=== PATIENT | female | born 1975 | race Caucasian/White ===

== ENCOUNTER → 2019-01-10 | Outpatient (CLI) | payer OTHER ==
--- NOTE | 2019-01-10 16:16 | XR ---
Right leg HISTORY: Trauma and pain 2 views of the right leg on 3 images Varicosities are noted in the subcutaneous tissues. Bone mineralization, joint spaces and alignment a re maintained. Soft tissue calcifications likely due to venous stasis disease. There is a plantar marine caneal spur. Enthesophyte present at the insertion of the Achilles tendon. IMPRESSION: No fracture or dislocation.
== END ==
LOC: RADXRMAIN 15:32
PROVIDERS: ATTEND Emergency Medicine
DX: S86.001A Unspecified injury of right Achilles tendon, initial encounter (principal); S80.11XA Contusion of right lower leg, initial encounter

== ENCOUNTER → 2019-01-13 | Outpatient (CLI) | payer OTHER ==
--- NOTE | 2019-01-13 15:26 | XR ---
EXAMINATION TYPE: XR chest 2V DATE OF EXAM: 01/13/2019 COMPARISON: NONE HISTORY: MRI clearance TECHNIQUE: Frontal and lateral views of the chest are obtained. FINDINGS: Patient is post median sternotomy. There are sternal wire is in place. Overlying artifacts are noted. No other radiopaque foreign bodies. Strand-like densities are present in the mid lungs com patible with underlying scarring or atelectasis. There is no pleural effusion or pneumothorax seen. The cardiac silhouette size is within normal limits. The osseous structures are intact. IMPRESSION: No acute cardiopulmonary process.
== END | disposition home or self-care (01) ==
LOC: RADXRMAIN 11:30
PROVIDERS: ATTEND Orthopaedic Surgery
DX: Z01.818 Encounter for other preprocedural examination (principal); Z98.890 Other specified postprocedural states
CPT/HCPCS: 71046

== ENCOUNTER → 2022-02-23 | Outpatient (CLI) | payer BC ==
--- NOTE | 2022-02-25 12:08 | MM ---
Reason for exam: screening (asymptomatic). Last mammogram was performed 6 years and 4 months ago. History: Patient had first child at age 33. Family history of breast cancer in mother at age 42. Reductions of both breasts, 2013. Physical Findings: A clinical breast exam by your physician is recommended on an annual basis and results should be correlated with mammographic findings. MG 3D Screening Mammo W/Cad Bilateral CC and MLO view(s) were taken. Prior study comparison: October 28, 2015, bilateral MG 3d screening mammo w/cad. February 05, 2010, right breast mammogram dig work up. There are scattered fibroglandular densities. Unchanged areas of bilateral focal asymmetry. 5mm circumscribed isodense nodule lateral right breast is new but likely a benign cyst. 6 month follow up. ASSESSMENT: Probably benign, BI-RAD 3 RECOMMENDATION: Follow-up diagnostic mammogram of the right breast in 6 months. (3D)
== END | disposition home or self-care (01) ==
LOC: RADMAMWWP 15:07
PROVIDERS: ATTEND Obstetrics & Gynecology
DX: Z12.31 Encounter for screening mammogram for malignant neoplasm of breast (principal)
CPT/HCPCS: 77063; 77067

== ENCOUNTER → 2022-08-19 | Outpatient (CLI) | payer BC ==
--- NOTE | 2022-08-19 07:40 | MM ---
Reason for Exam: Additional evaluation requested from prior study. Last screening mammogram was performed 6 month(s) ago. Patient History: Menarche at age 11. First Full-Term at age 33. Late child-bearing (after 30). Postmenopausal. Patient has history of breast feeding. 2012, Bilateral Reduction. Mother had breast cancer, age 42. Risk Values: Kate 5 year model risk: 1.9%. NCI Lifetime model risk: 17.5%. Prior Study Comparison: 02/03/2010 Bilateral Screening Mammogram, [facility]. 02/05/2010 Right Diagnostic Mammogram, [facility]. 10/28/2015 Bilateral Screening Mammogram, [facility]. 02/23/2022 Bilateral Screening Mammogram, [facility]. Tissue Density: Right: The breast tissue is heterogeneously dense. This may lower the sensitivity of mammography. Findings: Analyzed By CAD. Stable appearing upper outer quadrant mass at medial depth measuring 5 mm. No new suspicious osseous, masses or distortions. Overall Assessment: Benign, BI-RAD 2 Management: Screening Mammogram of both breasts in 1 year. A clinical breast exam by your physician is recommended on an annual basis and results should be correlated with mammographic findings. This exam should not preclude additional follow-up of suspicious palpable abnormalities. Results were given to the patient verbally at the time of exam. Electronically signed and approved by: Raymond Wilson DO
== END | disposition home or self-care (01) ==
LOC: RADMAMWWP 06:56
PROVIDERS: ATTEND Obstetrics & Gynecology
DX: R92.8 Other abnormal and inconclusive findings on diagnostic imaging of breast (principal)
CPT/HCPCS: 77061; 77065

== ENCOUNTER 2023-03-13 04:43 | Inpatient (IN) | payer BC ==
[2023-03-13] MEDS ORDERED: DILTIAZEM DRIP BOLUS FROM BAG 1 MG SOLN IV ONE ×2 (05:11→07:32)
--- NOTE | 2023-03-13 05:18 | ED ---
SOB HPI - General Chief Complaint: Shortness of Breath Stated Complaint: ZORAIDA Time Seen by Provider: 03/13/23 04:59 Source: patient Mode of arrival: ambulatory Limitations: no limitations - History of Present Illness Initial Comments: This patient is a 47-year-old woman who presents with complaint of having cough and shortness of breath going back proximally 5-6 days. She states that she started with some congestion then noticed she was having coughing with some occasional whitish sputum. She has shortness of breath. She has not noted fever or chills. She did have some chest pains but she states that there bilateral along the ribs and brought on by cough. She is not having any diaphoresis, nausea or vomiting, palpitations or syncope. The patient had been seen at a clinic earlier in the week, diagnosed with bronchitis, and given course of antibiotics without any improvement. MD Complaint: shortness of breath, cough Onset/Timin -: days(s) Quality: aching Consistency: constant Improves With: nothing Worsens With: nothing - Related Data Previous Rx's Medication Instructions Recorded Apixaban [Eliquis] 5 mg PO BID #60 tab 03/16/23 Furosemide [Lasix] 20 mg PO DAILY #30 tab 03/16/23 Losartan [Cozaar] 25 mg PO HS #30 tab 03/16/23 Metoprolol Succinate (ER) [Toprol 50 mg PO DAILY #30 tab 03/16/23 XL] Spironolactone [Aldactone] 25 mg PO DAILY #30 tab 03/16/23 Allergies Allergy/AdvReac Type Severity Reaction Status Date / Time No Known Allergies Allergy Verified 03/13/23 11:11 Review of Systems ROS Statement: Those systems with pertinent positive or pertinent negative responses have been documented in the HPI. ROS Other: All systems not noted in ROS Statement are negative. Constitutional: Denies: fever, chills Respiratory: Reports: cough, dyspnea. Denies: wheezes Cardiovascular: Reports: palpitations, edema. Denies: chest pain Gastrointestinal: Denies: abdominal pain, nausea, vomiting, diarrhea, melena, hematochezia Genitourinary: Denies: dysuria, hematuria Musculoskeletal: Denies: back pain Skin: Denies: rash Neurological: Denies: headache, weakness Past Medical History Past Medical History: Mitral Valve Prolapse (MVP) History of Any Multi-Drug Resistant Organisms: None Reported Past Surgical History: Breast Surgery Past Psychological History: Anxiety, Depression Smoking Status: Former smoker Past Alcohol Use History: Rare Past Drug Use History: Marijuana - Past Family History Mother Family Medical History: Cancer Father Family Medical History: Prostate Disorder General Exam Limitations: no limitations General appearance: alert, in no apparent distress Head exam: Present: atraumatic, normocephalic Eye exam: Present: normal appearance Neck exam: Present: normal inspection, full ROM Respiratory exam: Present: respiratory distress (Mild tachypnea), rales. Absent: wheezes, rhonchi, stridor, accessory muscle use Cardiovascular Exam: Present: tachycardia, systolic murmur, gallop. Absent: diastolic murmur, rubs GI/Abdominal exam: Present: soft. Absent: distended, tenderness, guarding, rebound, rigid, mass, pulsatile mass, hernia Extremities exam: Present: normal inspection, normal capillary refill, pedal edema. Absent: calf tenderness Back exam: Present: normal inspection. Absent: CVA tenderness (R), CVA tenderness (L) Neurological exam: Present: alert Skin exam: Present: warm, dry, intact, normal color. Absent: rash Course Vital Signs 03/13/23 03/13/23 03/13/23 04:45 05:04 05:05 Temperature 98.1 F Pulse Rate 131 H 138 H Respiratory 22 24 24 Rate Blood Pressure 164/102 143/111 O2 Sat by Pulse 99 96 Oximetry 03/13/23 03/13/23 03/13/23 05:25 05:30 05:35 Temperature Pulse Rate 133 H 120 H 122 H Respiratory 26 H 24 24 Rate Blood Pressure 143/111 158/101 164/102 O2 Sat by Pulse 95 94 L 94 L Oximetry 03/13/23 03/13/23 03/13/23 05:40 05:45 05:50 Temperature Pulse Rate 122 H 116 H 113 H Respiratory 22 Rate Blood Pressure 164/102 164/102 148/107 O2 Sat by Pulse 93 L 93 L 95 Oximetry 03/13/23 03/13/23 03/13/23 05:55 06:00 06:05 Temperature Pulse Rate 112 H 113 H 114 H Respiratory 22 22 21 Rate Blood Pressure 148/107 148/107 156/106 O2 Sat by Pulse 95 95 95 Oximetry 03/13/23 03/13/23 03/13/23 06:10 06:15 06:20 Temperature Pulse Rate 114 H 112 H 116 H Respiratory 13 0 L 20 Rate Blood Pressure 156/106 156/106 160/100 O2 Sat by Pulse 93 L 93 L 94 L Oximetry 03/13/23 03/13/23 03/13/23 06:25 06:40 08:07 Temperature Pulse Rate 115 H 112 H 112 H Respiratory 18 22 20 Rate Blood Pressure 160/100 155/112 162/92 O2 Sat by Pulse 93 L 95 98 Oximetry Medical Decision Making - Medical Decision Making This patient is 47-year-old woman presenting with dyspnea, palpitations, edema. Clinically patient manifesting congestive heart failure. The workup does include chest x-ray which I interpreted as showing cardiomegaly and congestion consistent with congestive heart failure. Given the findings, patient will be admitted to have echocardiogram and cardiology consultation. Was pt. sent in by a medical professional or institution (, PA, [employer], urgent care, hospital, or alf...) When possible be specific @ -[No] Did you speak to anyone other than the patient for history (EMS, parent, family, police, friend...)? What history was obtained from this source @ -[No] Did you review nursing and triage notes (agree or disagree)? Why? @ -[I reviewed and agree with nursing and triage notes] Were old charts reviewed (outside hosp., previous admission, EMS record, old EKG, old radiological studies, urgent care reports/EKG's, alf records)? Report findings @ -[No old charts were reviewed] Differential Diagnosis (chest pain, altered mental status, abdominal pain women, abdominal pain men, vaginal bleeding, weakness, fever, dyspnea, syncope, headache, dizziness, GI bleed, back pain, seizure, CVA, palpatations, mental health, musculoskeletal)? @ -[Differential Dyspnea: Coronary syndrome, arrhythmia, tamponade, asthma, COPD, pulmonary embolism, pneumonia, pneumothorax, pulmonary effusion, anaphylaxis, diabetic ketoacidosis, flailed chest, pulmonary contusion, diaphragmatic rupture, anemia, neuromuscular, this is not meant to be an all-inclusive list. EKG interpreted by me (3pts min.). @ -[As above] X-rays interpreted by me (1pt min.). @ -[As above CT interpreted by me (1pt min.). @ -[None done] U/S interpreted by me (1pt. min.). @ -[None done] What testing was considered but not performed or refused? (CT, X-rays, U/S, labs)? Why? @ -[None] What meds were considered but not given or refused? Why? @ -[None] Did you discuss the management of the patient with other professionals (professionals i.e. , PA, [employer], lab, RT, psych nurse, social services manager, supervisor laundry, teacher, special technical operations officer, case making machine operator)? Give summary @ -[Admitting physician Was smoking cessation discussed for >3mins.? @ -[No] Was critical care preformed (if so, how long)? @ -[Yes 30 minutes Were there social determinants of health that impacted care today? How? (Homelessness, low income, unemployed, alcoholism, drug addiction, transpo rtation, low edu. Level, literacy, decrease access to med. care, detention, rehab)? @ -[No] Was there de-escalation of care discussed even if they declined (Discuss DNR or withdrawal of care, Hospice)? DNR status @ -[No] What co-morbidities impacted this encounter? (DM, HTN, Smoking, COPD, CAD, Cancer, CVA, ARF, Chemo, Hep., AIDS, mental health diagnosis, sleep apnea, morbid obesity)? @ -[None] Was patient admitted / discharged? Hospital course, mention meds given and route, prescriptions, significant lab abnormalities, going to OR and other pertinent info. @ -[The patient is admitted to control the atrial fibrillation with rapid ventricular rate, to improve the congestive heart failure, to rule out developing pneumonia, to have echocardiogram and cardiology consultation Undiagnosed new problem with uncertain prognosis? @ -[No] Drug Therapy requiring intensive monitoring for toxicity (Heparin, Nitro, I nsulin, Cardizem)? @ -[Cardizem Were any procedures done? @ -[No] Diagnosis/symptom? @ -[. Atrial fibrillation with rapid ventricular rate 2. Acute congestive heart failure 3. Acute, or Chronic, or Acute on Chronic? @ -[default] Uncomplicated (without systemic symptoms) or Complicated (systemic symptoms)? @ -[Complicated Side effects of treatment? @ -[No] Exacerbation, Progression, or Severe Exacerbation? @ -[Severe exacerbation of heart failure Poses a threat to life or bodily function? How? (Chest pain, USA, MD, pneumonia, PE, COPD, DKA, ARF, appy, cholecystitis, CVA, Diverticulitis, Homicidal, Suicidal, threat to staff... and all critical care pts) @ -[Yes, untreated atrial fibrillation and congestive heart failure can both progress to hypoxemia and/or MD resulting in - Lab Data Result diagrams: 03/13/23 05:04 03/15/23 10:41 Lab Results 03/13/23 03/13/23 03/13/23 Range/Units 05:02 05:04 05:04 WBC 4.9 (3.8-10.6) k/uL RBC 4.61 (3.80-5.40) m/uL Hgb 12.6 (11.4-16.0) gm/dL Hct 38.7 (34.0-46.0) % MCV 84.0 (80.0-100.0) fL MCH 27.4 (25.0-35.0) pg MCHC 32.6 (31.0-37.0) g/dL RDW 15.7 H (11.5-15.5) % Plt Count 295 (150-450) k/uL MPV 8.1 Neutrophils % 73 % Lymphocytes % 14 % Monocytes % 7 % Eosinophils % 1 % Basophils % 0 % Neutrophils # 3.6 (1.3-7.7) k/uL Lymphocytes # 0.7 L (1.0-4.8) k/uL Monocytes # 0.3 (0-1.0) k/uL Eosinophils # 0.1 (0-0.7) k/uL Basophils # 0.0 (0-0.2) k/uL Hypochromasia Slight PT 10.6 (9.0-12.0) sec INR 1.0 (<1.2) APTT 24.8 (22.0-30.0) sec Sodium (137-145) mmol/L Potassium (3.5-5.1) mmol/L Chloride (98-107) mmol/L Carbon Dioxide (22-30) mmol/L Anion Gap mmol/L BUN (7-17) mg/dL Creatinine (0.52-1.04) mg/dL Est GFR (CKD-EPI)AfAm (>60 ml/min/1.73 sqM) Est GFR (CKD-EPI)NonAf (>60 ml/min/1.73 sqM) Glucose (74-99) mg/dL Plasma Lactic Acid [place] (0.7-2.0) mmol/L Calcium (8.4-10.2) mg/dL Magnesium (1.6-2.3) mg/dL Total Bilirubin (0.2-1.3) mg/dL AST (14-36) U/L ALT (4-34) U/L Alkaline Phosphatase (38-126) U/L Troponin I (0.000-0.034) ng/mL NT-Pro-B Natriuret Pep pg/mL Total Protein (6.3-8.2) g/dL Albumin (3.5-5.0) g/dL Procalcitonin (0.02-0.09) ng/mL Influenza Type A (PCR) Not Detected (Not Detectd) Influenza Type B (PCR) Not Detected (Not Detectd) RSV (PCR) Not Detected (Not Detectd) SARS-CoV-2 (PCR) Not Detected (Not Detectd) 03/13/23 03/13/23 03/13/23 Range/Units 05:04 05:04 05:04 WBC (3.8-10.6) k/uL RBC (3.80-5.40) m/uL Hgb (11.4-16.0) gm/dL Hct (34.0-46.0) % MCV (80.0-100.0) fL MCH (25.0-35.0) pg MCHC (31.0-37.0) g/dL RDW (11.5-15.5) % Plt Count (150-450) k/uL MPV Neutrophils % % Lymphocytes % % Monocytes % % Eosinophils % % Basophils % % Neutrophils # (1.3-7.7) k/uL Lymphocytes # (1.0-4.8) k/uL Monocytes # (0-1.0) k/uL Eosinophils # (0-0.7) k/uL Basophils # (0-0.2) k/uL Hypochromasia PT (9.0-12.0) sec INR (<1.2) APTT (22.0-30.0) sec Sodium 138 (137-145) mmol/L Potassium 3.9 (3.5-5.1) mmol/L Chloride 102 (98-107) mmol/L Carbon Dioxide 25 (22-30) mmol/L Anion Gap 11 mmol/L BUN 10 (7-17) mg/dL Creatinine 0.60 (0.52-1.04) mg/dL Est GFR (CKD-EPI)AfAm >90 (>60 ml/min/1.73 sqM) Est GFR (CKD-EPI)NonAf >90 (>60 ml/min/1.73 sqM) Glucose 113 H (74-99) mg/dL Plasma Lactic Acid Ucba 1.5 (0.7-2.0) mmol/L Calcium 9.1 (8.4-10.2) mg/dL Magnesium 1.8 (1.6-2.3) mg/dL Total Bilirubin 0.6 (0.2-1.3) mg/dL AST 29 (14-36) U/L ALT 25 (4-34) U/L Alkaline Phosphatase 152 H (38-126) U/L Troponin I <0.012 (0.000-0.034) ng/mL NT-Pro-B Natriuret Pep pg/mL Total Protein 7.2 (6.3-8.2) g/dL Albumin 4.1 (3.5-5.0) g/dL Procalcitonin (0.02-0.09) ng/mL Influenza Type A (PCR) (Not Detectd) Influenza Type B (PCR) (Not Detectd) RSV (PCR) (Not Detectd) SARS-CoV-2 (PCR) (Not Detectd) 03/13/23 03/13/23 Range/Units 05:04 05:04 WBC (3.8-10.6) k/uL RBC (3.80-5.40) m/uL Hgb (11.4-16.0) gm/dL Hct (34.0-46.0) % MCV (80.0-100.0) fL MCH (25.0-35.0) pg MCHC (31.0-37.0) g/dL RDW (11.5-15.5) % Plt Count (150-450) k/uL MPV Neutrophils % % Lymphocytes % % Monocytes % % Eosinophils % % Basophils % % Neutrophils # (1.3-7.7) k/uL Lymphocytes # (1.0-4.8) k/uL Monocytes # (0-1.0) k/uL Eosinophils # (0-0.7) k/uL Basophils # (0-0.2) k/uL Hypochromasia PT (9.0-12.0) sec INR (<1.2) APTT (22.0-30.0) sec Sodium (137-145) mmol/L Potassium (3.5-5.1) mmol/L Chloride (98-107) mmol/L Carbon Dioxide (22-30) mmol/L Anion Gap mmol/L BUN (7-17) mg/dL Creatinine (0.52-1.04) mg/dL Est GFR (CKD-EPI)AfAm (>60 ml/min/1.73 sqM) Est GFR (CKD-EPI)NonAf (>60 ml/min/1.73 sqM) Glucose (74-99) mg/dL Plasma Lactic Acid [place] (0.7-2.0) mmol/L Calcium (8.4-10.2) mg/dL Magnesium (1.6-2.3) mg/dL Total Bilirubin (0.2-1.3) mg/dL AST (14-36) U/L ALT (4-34) U/L Alkaline Phosphatase (38-126) U/L Troponin I (0.000-0.034) ng/mL NT-Pro-B Natriuret Pep 1840 pg/mL Total Protein (6.3-8.2) g/dL Albumin (3.5-5.0) g/dL Procalcitonin 0.04 (0.02-0.09) ng/mL Influenza Type A (PCR) (Not Detectd) Influenza Type B (PCR) (Not Detectd) RSV (PCR) (Not Detectd) SARS-CoV-2 (PCR) (Not Detectd) - EKG Data -: EKG Interpreted by Ne EKG shows normal: axis (Normal), intervals (Normal), QRS complexes (Incomplete right bundle branch block) Interpretation: LVH, other (Underlying rhythm appears to be atrial flutter/atrial fibrillation with rate approximately 110 bpm) Critical Care Time Critical Care Time: Yes (30 minutes) Disposition Clinical Impression: Congestive heart failure, Atrial fibrillation with rapid ventricular response Disposition: ADMITTED IP TO THIS HOSP Is patient prescribed a controlled substance at d/c from ED?: No
[2023-03-13 05:21] LABS: Basophils % (A) 0 %; Eosinophils # (A) 0.1 k/uL (0-0.7); Eosinophils % (A) 1 %; HCT 38.7 % (34.0-46.0); HGB 12.6 gm/dL (11.4-16.0); Hypochromasia Slight; Lymphocytes # (A) 0.7 k/uL (1.0-4.8); Lymphocytes % (A) 14 %; MCH 27.4 pg (25.0-35.0); MCHC 32.6 g/dL (31.0-37.0); Mean Platelet Volume 8.1; Monocytes # (A) 0.3 k/uL (0-1.0); Monocytes % (A) 7 %; Neutrophils # (A) 3.6 k/uL (1.3-7.7); Neutrophils % (A) 73 %; Platelet Count 295 k/uL (150-450); RBC 4.61 m/uL (3.80-5.40); RDW 15.7 % (11.5-15.5); WBC 4.9 k/uL (3.8-10.6)
[2023-03-13] MEDS: DILTIAZEM 125 MG in SODIUM CHLORIDE 0.9% 100 ML IV SCH (05:21)
[2023-03-13 05:32] LABS: ALT 25 U/L (4-34); AST 29 U/L (14-36); African American GFR (CKD) >90 (>60 ml/min/1.73 sqM); Albumin 4.1 g/dL (3.5-5.0); Alkaline Phosphatase 152 U/L (38-126); Anion Gap 11 mmol/L; Blood Urea Nitrogen 10 mg/dL (7-17); Calcium 9.1 mg/dL (8.4-10.2); Carbon Dioxide 25 mmol/L (22-30); Chloride 102 mmol/L (98-107); Glucose 113 mg/dL (74-99); Magnesium 1.8 mg/dL (1.6-2.3); Non-African American GFR(CKD) >90 (>60 ml/min/1.73 sqM); Potassium 3.9 mmol/L (3.5-5.1); Sodium 138 mmol/L (137-145); Total Bilirubin 0.6 mg/dL (0.2-1.3); Total Protein 7.2 g/dL (6.3-8.2)
[2023-03-13 05:33] LABS: Partial Thromboplastin Time 24.8 sec (22.0-30.0); Prothrombin Time 10.6 sec (9.0-12.0)
--- NOTE | 2023-03-13 07:12 | XR ---
EXAM: XR Chest, 2 Views CLINICAL HISTORY: ITS.REASON XR Reason: difficulty breathing TECHNIQUE: Frontal and lateral views of the chest. COMPARISON: 01/13/2019 FINDINGS: Lungs: Enlarged cardiac silhouette. Increased perihilar opacities. Pleural space: Unremarkable. No pneumothorax. Heart: Enlarged Bones/joints: No acute osseous abnormality. IMPRESSION: Enlarged cardiac silhouette. Increased perihilar opacities. Findings may represents CHF with pulmonary edema versus pneumonia.
[2023-03-13] MEDS ORDERED: NITROGLYCERIN SL TABS 0.4 MG TAB SUBLINGUAL PRN (07:23)
[2023-03-13] MEDS: ENOXAPARIN 120 MG/0.8 ML SYRINGE SQ SCH ×2 (09:09→19:46)
--- NOTE | 2023-03-13 10:43 | P.HPIM ---
History of Present Illness This is a pleasant 47 years old female with no significant past medical history other than mitral valve prolapse. Patient presents because of dyspnea 1 week duration. She went to a clinic of Dr. Calvo last Wednesday and they diagnosed her with bronchitis and started on antibiotic with no relief She is coughing and making the total white phlegm but no chest pain only when coughing. Just with her diarrhea from the antibiotic no abdominal pain or vomiting. No dysuria urgency or other urinary complaints. No headache weakness or numbness or dizziness. No confusion She quit smoking 15 years ago, alcohol occasionally, marijuana occasionally no other drugs Patient is tachycardic at 112, she is mildly hypoxic 93-95%, afebrile. She has unremarkable labs including CBC, INR, BMP and liver enzymes. Glucose 113. Troponin negative is less than 0.012. ProBNP is elevated 1840. Viruses are not detected including influenza, RSV and coronavirus Chest x-ray cardiac silhouette. Large. Increased perihilar opacity. Findings are consistent with CHF versus pneumonia in the emergency room patient was started on aspirin 325 mg, Cardizem drip. Services antibiotic Rocephin and She was admitted with cardiology consult EKG showing atrial flutter with a rate of 110 and 2-1 block Review of Systems Review of systems CONSTITUTIONAL: No fever, no malaise, no fatigue. HEENT: No recent visual problems or hearing problems. Denied any sore throat. CARDIOVASCULAR: No orthopnea, PND, no palpitations, no syncope. PULMONARY: No chest wall tenderness, no hemoptysis. GASTROINTESTINAL: No diarrhea, no nausea, no vomiting, no abdominal pain. Normoactive bowel sounds. NEUROLOGICAL: No headaches, no weakness, no numbness. HEMATOLOGICAL: Denies any bleeding or petechiae. GENITOURINARY: Denies any burning micturition, frequency, or urgency. MUSCULOSKELETAL/RHEUMATOLOGICAL: Denies any joint pain, swelling, or any muscle pain. ENDOCRINE: Denies any polyuria or polydipsia. Past Medical History Past Medical History: Mitral Valve Prolapse (MVP) History of Any Multi-Drug Resistant Organisms: None Reported Past Surgical History: Breast Surgery Past Psychological History: Anxiety, Depression Smoking Status: Former smoker Past Alcohol Use History: Rare Past Drug Use History: Marijuana - Past Family History Mother Family Medical History: Cancer Father Family Medical History: Prostate Disorder Medications and Allergies Allergies Allergy/AdvReac Type Severity Reaction Status Date / Time No Known Allergies Allergy Verified 03/13/23 04:53 Physical Exam Vitals: Vital Signs Temp Pulse Resp BP Pulse Ox 03/13/23 06:40 112 H 22 155/112 95 03/13/23 06:25 115 H 18 160/100 93 L 03/13/23 06:20 116 H 20 160/100 94 L 03/13/23 06:15 112 H 0 L 156/106 93 L 03/13/23 06:10 114 H 13 156/106 93 L 03/13/23 06:05 114 H 21 156/106 95 03/13/23 06:00 113 H 22 148/107 95 03/13/23 05:55 112 H 22 148/107 95 03/13/23 05:50 113 H 148/107 95 03/13/23 05:45 116 H 22 164/102 93 L 03/13/23 05:40 122 H 164/102 93 L 03/13/23 05:35 122 H 24 164/102 94 L 03/13/23 05:30 120 H 24 158/101 94 L 03/13/23 05:25 133 H 26 H 143/111 95 03/13/23 05:05 24 03/13/23 05:04 138 H 24 143/111 96 03/13/23 04:45 98.1 F 131 H 22 164/102 99 Intake and Output 03/12/23 03/13/23 03/13/23 22:59 06:59 14:59 Other: Weight 109.769 kg GENERAL: The patient is alert and oriented x3, not in any acute distress. Well developed, well nourished. HEENT: Pupils are round and equally reacting to light. EOMI. No scleral icterus. No conjunctival pallor. Normocephalic, atraumatic. No pharyngeal erythema. No thyromegaly. CARDIOVASCULAR: S1 and S2 present. No murmurs, rubs, or gallops. PULMONARY: Chest is clear to auscultation, no wheezing or crackles. ABDOMEN: Soft, nontender, nondistended, normoactive bowel sounds. No palpable organomegaly. MUSCULOSKELETAL: No joint swelling or deformity. -EXTREMITIES: No cyanosis, clubbing, mild bilateral pitting leg edema. NEUROLOGICAL: Gross neurological examination did not reveal any focal deficits. SKIN: No rashes. no petechiae. Results CBC & Chem 7: 03/13/23 05:04 03/13/23 05:04 Labs: Abnormal Lab Results - Last 24 Hours (Table) 03/13/23 03/13/23 Range/Units 05:04 05:04 RDW 15.7 H (11.5-15.5) % Lymphocytes # 0.7 L (1.0-4.8) k/uL Glucose 113 H (74-99) mg/dL Alkaline Phosphatase 152 H (38-126) U/L Assessment and Plan Assessment: Acute CHF, unknown ejection fraction. New-onset Atrial flutter with RVR Obesity with BMI of 35.7 Plan: Continue with Cardizem drip Continue with anticoagulation, currently on Lovenox IV Lasix twice a day Cardiology consult Check echocardiogram Check pro-CALCITONIN check TSH and hemoglobin A1c Labs and medication were reviewed.. Continue same treatment. Continue with symptomatic treatment. Resume home medication. Monitor labs and vitals. DVT and GI prophylaxis. Further recommendations as per clinical course of the patient DVT prophylaxis: Subcutaneous Lovenox GI Prophylaxis: Pepcid PT/OT: Pending Prognosis is guarded
--- NOTE | 2023-03-13 13:02 | CA ---
Transthoracic Echo Report Name: Nicole Elizondo Age: 47 Gender: F : 1975 Exam Date: 03/13/2023 10:14 Exam Location: [facility] Ht (in): 69 Wt (lb): 242 Ordering Physician: Fabio Flor MD Attending/Referring Phys: Crutch Maker Procedure CPT: Indications: chf Cardiac Hx: Patched IAS (at 2 yrs old); Asthmatiphorm Bronchitis;Obesity; Technical Quality: Fair Contrast 1: Total Dose (mL): Contrast 2: Total Dose (mL): MEASUREMENTS (Male / Female) Normal Values 2D ECHO LV Diastolic Diameter PLAX 5.4 cm 4.2 - 5.9 / 3.9 - 5.3 cm LV Systolic Diameter PLAX 4.8 cm LV Fractional Shortening PLAX 12.1 % IVS Diastolic Thickness 1.3 cm 0.6 - 1.0 / 0.6 - 0.9 cm IVS Systolic Thickness 1.3 cm LVPW Diastolic Thickness 1.7 cm 0.6 - 1.0 / 0.6 - 0.9 cm LVPW Systolic Thickness 2.0 cm LV Relative Wall Thickness 0.6 RV Internal Dim ED PLAX 3.6 cm LVOT Diameter 2.2 cm LA Systolic Diameter LX 4.8 cm 3.0 - 4.0 / 2.7 - 3.8 cm LV Diastolic Volume MOD BP 164.4 cm??? 67 - 155 / 56 - 104 cm??? LV Systolic Volume MOD BP 108.5 cm??? 22 - 58 / 19 - 49 cm??? LV Ejection Fraction MOD BP 34.0 % >= 55 % LV Stroke Volume MOD BP 55.9 cm??? LV Diastolic Volume MOD 4C 123.3 cm??? LV Systolic Volume MOD 4C 100.6 cm??? LV Ejection Fraction MOD 4C 18.4 % LV Stroke Volume MOD 4C 22.6 cm??? LV Diastolic Length 4C 9.2 cm LV Systolic Length 4C 8.1 cm LV Diastolic Volume MOD 2C 208.1 cm??? LV Systolic Volume MOD 2C 111.8 cm??? LV Ejection Fraction MOD 2C 46.2 % LV Stroke Volume MOD 2C 96.2 cm??? LV Diastolic Length 2C 9.8 cm LV Systolic Length 2C 8.5 cm M-MODE LV Diastolic Diameter MM 6.2 cm 4.2 - 5.9 / 3.9 - 5.3 cm LV Diastolic Volume MM Teich 195.1 cm??? LV Systolic Diameter MM 5.1 cm LV Systolic Volume MM Teich 124.3 cm??? LV Fractional Shortening MM 17.8 % 25 - 43 / 27 - 45 % LV Ejection Fraction MM Teich 36.3 % LV Stroke Volume MM Teich 70.8 cm??? IVS Diastolic Thickness MM 1.6 cm 0.6 - 1.0 / 0.6 - 0.9 cm IVS Systolic Thickness MM 1.6 cm LVPW Diastolic Thickness MM 0.9 cm 0.6 - 1.0 / 0.6 - 0.9 cm LVPW Systolic Thickness MM 1.6 cm LV Relative Wall Thickness MM 0.4 0.24 - 0.42 / 0.22 - 0.42 LVMW Fractional Shortening MM 9.4 % 14 - 22 / 15 - 23 % LV Mass MM 349.5 g 88 - 224 / 67 - 162 g LV Mass Index MM 151.2 g/m??? 49 - 115 / 43 - 95 g/m??? RV Diastolic Diameter MM 2.8 cm Aortic Root Diameter MM 3.4 cm LA Systolic Diameter MM 5.6 cm LA Ao Ratio MM 1.7 AV Cusp Separation MM 2.1 cm DOPPLER AV Peak Velocity 141.3 cm/s AV Peak Gradient 8.0 mmHg AI Peak Velocity 524.5 cm/s AI Peak Gradient 110.0 mmHg AI Deceleration [place] 349.4 cm/s??? AI Pressure Half Time 435.3 ms MV Peak Velocity 114.7 cm/s MV Peak Gradient 5.3 mmHg MV Mean Velocity 86.1 cm/s MV Mean Gradient 3.2 mmHg MV Velocity Time Integral 14.7 cm MR Peak Velocity 506.5 cm/s MR Peak Gradient 102.6 mmHg MR Mean Velocity 387.9 cm/s MR Mean Gradient 65.6 mmHg MR Velocity Time Integral 146.7 cm MR Flow Rate PISA 69.7 cm???/s MV E' Velocity 4.8 cm/s TR Peak Velocity 263.7 cm/s TR Peak Gradient 27.8 mmHg Right Ventricular Systolic Press 37.8 mmHg PV Peak Velocity 82.3 cm/s PV Peak Gradient 2.7 mmHg FINDINGS Left Ventricle Left ventricular ejection fraction is estimated at 20-25 %. Borderline left ventricular hypertrophy. Grade 3 diastolic dysfunction. Severely reduced global left ventricular systolic function. Right Ventricle Normal right ventricular size and function. Right Atrium Mild right atrial dilatation. Left Atrium Mild left atrial dilatation. Mitral Valve Mild mitral regurgitation. Aortic Valve Trileaflet aortic valve. Moderate aortic regurgitation. Tricuspid Valve [id number] tricuspid regurgitation. Pulmonic Valve [id number] pulmonic regurgitation. Pericardium Normal pericardium. No pericardial effusion. Aorta Normal size aortic root and proximal ascending aorta. CONCLUSIONS Left ventricular ejection fraction 20-25% with global hypokinesis Mild mitral regurgitation Moderate aortic regurgitation Mild to moderate tricuspid regurgitation RVSP 37 Previewed by: Dr. Chai Kolb DO (Electronically Signed) Final Date: 13 March 2023 13:01
--- NOTE | 2023-03-13 15:11 | P.CRDCN ---
History of Present Illness Consult date: 03/13/23 Consult reason: atrial flutter, congestive heart failure Chief complaint: shortness of breath History of present illness: History of present illness: Patient is a pleasant 47-year-old female with significant past medical history of mitral valve prolapse and ASD status post surgery at age 2 who presented with complaints of shortness of breath and cough. She does not follow with a ultrasound manager. She reports that over the past 1 week she has had worsening shortness of breath and cough, she did feel occasional palpitations. 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 In the emergency department she was found to be in a flutter with RVR. Troponin was negative 3. BNP elevated at 1840. WBC 4.9, hemoglobin 12.6, platelets 295, creatinine 0.6, TSH normal. EKG showed atrial flutter with RVR, 110 bpm. Echocardiogram was done showing ejection fraction 2025%, grade 3 diastolic dysfunction, moderate aortic regurgitation, mild to moderate tricuspid regurgitation. Chest x-ray shows enlarged cardiac silhouette with increased perihilar opacities. She is still feeling short of breath today. Denies any chest pain or pressure. She is unable to lay flat. REVIEW OF SYSTEMS: No fever or chills. No cough or expectoration. Reports shortness of breath. No diaphoresis. Patient denies headache, dizziness, blurred vision, double vision. Patient denies any stomach discomfort. No nausea, vomiting. No hematochezia. No hematemesis. Denies any black stools or blood in his stools. Denies dysuria or hematuria. No muscle weakness or numbness. No chest pain or pressure. Reports orthopnea. PHYSICAL EXAMINATION: This is a 47-year-old female in no apparent distress at the time of my examination. HEENT: Head is atraumatic, normocephalic. Pupils are equal, round. Sclerae anicteric. Conjunctivae are clear. Mucous membranes of the mouth are moist. Neck is supple. There is no jugular venous distention. No carotid bruit is heard. CHEST EXAMINATION: Lungs are diminished. No chest wall tenderness is noted on palpation or with deep breathing. HEART EXAMINATION: Irregular rate and rhythm. S1, S2 heard. No murmurs, gallops or rub. ABDOMEN: Soft, nontender. Bowel sounds are heard. EXTREMITIES: 2+ peripheral pulses, 1+ edema BLE NEUROLOGIC EXAMINATION: Patient is awake, alert and oriented x3. IMPRESSION AND PLAN: Atrial flutter Systolic heart failure, EF 2025% Diastolic heart failure Shortness of breath Moderate aortic regurgitation Mild to moderate tricuspid regurgitation PLAN: We will optimize heart failure regimen. Start Toprol 25 mg by mouth erika y, losartan 12.5 mg by mouth daily. Start Lasix 20 mg IV daily. Discussed the option for rhythm management and may consider cardioversion in the next 1-2 days depending on her course. We will follow. I am dictating on behalf of Dr. Chai Kolb's history/physical and assessment/plan. Past Medical History Past Medical History: Mitral Valve Prolapse (MVP) History of Any Multi-Drug Resistant Organisms: None Reported Past Surgical History: Breast Surgery Additional Past Surgical History / Comment(s): surgery on ovaries, ACL repair Past Psychological History: Anxiety, Depression Smoking Status: Former smoker Past Alcohol Use History: Rare Past Drug Use History: Marijuana - Past Family History Mother Family Medical History: Cancer Father Family Medical History: Prostate Disorder Medications and Allergies Home Medications Medication Instructions Recorded Confirmed Type Doxycycline Hyclate 100 mg PO BID 03/13/23 03/13/23 History Allergies Allergy/AdvReac Type Severity Reaction Status Date / Time No Known Allergies Allergy Verified 03/13/23 11:11 Physical Exam Vitals: Vital Signs Temp Pulse Pulse Resp BP BP Pulse Ox 03/13/23 11:20 109 H 17 117/93 95 03/13/23 08:20 97.9 F 129 H 19 157/91 96 03/13/23 08:07 112 H 20 162/92 98 03/13/23 06:40 112 H 22 155/112 95 03/13/23 06:25 115 H 18 160/100 93 L 03/13/23 06:20 116 H 20 160/100 94 L 03/13/23 06:15 112 H 0 L 156/106 93 L 03/13/23 06:10 114 H 13 156/106 93 L 03/13/23 06:05 114 H 21 156/106 95 03/13/23 06:00 113 H 22 148/107 95 03/13/23 05:55 112 H 22 148/107 95 03/13/23 05:50 113 H 148/107 95 03/13/23 05:45 116 H 22 164/102 93 L 03/13/23 05:40 122 H 164/102 93 L 03/13/23 05:35 122 H 24 164/102 94 L 03/13/23 05:30 120 H 24 158/101 94 L 03/13/23 05:25 133 H 26 H 143/111 95 03/13/23 05:05 24 03/13/23 05:04 138 H 24 143/111 96 03/13/23 04:45 98.1 F 131 H 22 164/102 99 Intake and Output 03/13/23 03/13/23 03/13/23 06:59 14:59 22:59 Intake Total 118 Balance 118 Intake: Oral 118 Other: Weight 109.769 kg 109.769 kg Results 03/13/23 05:04 03/13/23 05:04 Cardiac Enzymes 03/13/23 03/13/23 03/13/23 Range/Units 05:04 05:04 08:22 AST 29 (14-36) U/L Troponin I <0.012 0.013 (0.000-0.034) ng/mL 03/13/23 Range/Units 11:08 AST (14-36) U/L Troponin I 0.013 (0.000-0.034) ng/mL Coagulation 03/13/23 Range/Units 05:04 PT 10.6 (9.0-12.0) sec APTT 24.8 (22.0-30.0) sec CBC 03/13/23 Range/Units 05:04 WBC 4.9 (3.8-10.6) k/uL RBC 4.61 (3.80-5.40) m/uL Hgb 12.6 (11.4-16.0) gm/dL Hct 38.7 (34.0-46.0) % Plt Count 295 (150-450) k/uL Comprehensive Metabolic Panel 03/13/23 Range/Units 05:04 Sodium 138 (137-145) mmol/L Potassium 3.9 (3.5-5.1) mmol/L Chloride 102 (98-107) mmol/L Carbon Dioxide 25 (22-30) mmol/L BUN 10 (7-17) mg/dL Creatinine 0.60 (0.52-1.04) mg/dL Glucose 113 H (74-99) mg/dL Calcium 9.1 (8.4-10.2) mg/dL AST 29 (14-36) U/L ALT 25 (4-34) U/L Alkaline Phosphatase 152 H (38-126) U/L Total Protein 7.2 (6.3-8.2) g/dL Albumin 4.1 (3.5-5.0) g/dL Current Medications Generic Name Dose Route Start Last Admin Trade Name Freq PRN Reason Stop Dose Admin Aspirin 325 mg 03/14/23 09:00 Aspirin 325 Mg Tab PO DAILY [facility] Enoxaparin Sodium 110 mg 03/13/23 08:00 03/13/23 09:09 Enoxaparin 120 Mg/0.8 Ml Syringe SQ 110 mg Q12H JAYCE Administration Furosemide 20 mg 03/13/23 14:15 Furosemide 10 Mg/Ml 2 Ml Vial IV DAILY [facility] Diltiazem HCl 125 mg/ Sodium 125 mls @ 5 mls/hr 03/13/23 05:15 03/13/23 05:21 Chloride IV 5 mg/hr .Q24H JAYCE 5 mls/hr Administration 5 MG/HR Losartan Potassium 12.5 mg 03/13/23 14:15 Losartan 25 Mg Tab PO DAILY [facility] Metoprolol Succinate 25 mg 03/13/23 14:15 Metoprolol Succinate (Er) 25 Mg Tab.Er.24h PO DAILY [facility] Nitroglycerin 0.4 mg 03/13/23 07:23 Nitroglycerin Sl Tabs 0.4 Mg Tab SUBLINGUAL Q5M PRN Chest Pain Intake and Output 03/13/23 03/13/23 03/13/23 06:59 14:59 22:59 Intake Total 118 Balance 118 Intake: Oral 118 Other: Weight 109.769 kg 109.769 kg Patient Weight 03/14/23 06:59 Weight 109.769 kg 03/13/23 05:04 03/13/23 05:04
[2023-03-13] MEDS: LOSARTAN 25 MG TAB PO SCH (15:12)
[2023-03-13] MEDS: METOPROLOL SUCCINATE (ER) 25 MG TAB.ER.24H PO SCH (15:12)
[2023-03-13] MEDS: FUROSEMIDE 10 MG/ML 2 ML VIAL IV SCH (15:12)
[2023-03-14] MEDS: DILTIAZEM 125 MG in SODIUM CHLORIDE 0.9% 100 ML IV SCH (03:33)
[2023-03-14] MEDS: FUROSEMIDE 10 MG/ML 2 ML VIAL IV SCH (07:52)
[2023-03-14] MEDS: LOSARTAN 25 MG TAB PO SCH (07:52)
[2023-03-14] MEDS: ENOXAPARIN 120 MG/0.8 ML SYRINGE SQ SCH (07:52)
[2023-03-14] MEDS: METOPROLOL SUCCINATE (ER) 25 MG TAB.ER.24H PO SCH (07:52)
[2023-03-14] MEDS: ASPIRIN 325 MG TAB PO SCH (07:52)
[2023-03-14 13:27] LABS: Chol/HDL Ratio 2.25 Ratio; LDL Cholesterol,Calculated 59.7 mg/dL (0.0-131.0); VLDL Calculation 12.56 mg/dL (5.00-40.00)
--- NOTE | 2023-03-14 13:47 | P.PN ---
Subjective Progress Note Date: 03/14/23 Patient is a pleasant 47-year-old female with significant past medical history of mitral valve prolapse and ASD status post surgery at age 2 who presented with complaints of shortness of breath and cough. She does not follow with a automobiles salesperson. She reports that over the past 1 week she has had worsening shortness of breath and cough, she did feel occasional palpitations. 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 In the emergency department she was found to be in a flutter with RVR. Troponin was negative 3. BNP elevated at 1840. WBC 4.9, hemoglobin 12.6, platelets 295, creatinine 0.6, TSH normal. EKG showed atrial flutter with RVR, 110 bpm. Echocardiogram was done showing ejection fraction 2025%, grade 3 diastolic dysfunction, moderate aortic regurgitation, mild to moderate tricuspid regurgitation. Chest x-ray shows enlarged cardiac silhouette with increased perihilar opacities. She is still feeling short of breath today. Denies any chest pain or pressure. She is unable to lay flat. 03/14 She is feeling much better today. Shortness of breath improved. Tele shows a- flutter with rates 60's. PHYSICAL EXAMINATION: This is a 47-year-old female in no apparent distress at the time of my examination. HEENT: Head is atraumatic, normocephalic. Pupils are equal, round. Sclerae anicteric. Conjunctivae are clear. Mucous membranes of the mouth are moist. Neck is supple. There is no jugular venous distention. No carotid bruit is heard. CHEST EXAMINATION: Lungs are diminished with scattered wheezes. No chest wall tenderness is noted on palpation or with deep breathing. HEART EXAMINATION: Irregular rate and rhythm. S1, S2 heard. No murmurs, gallops or rub. ABDOMEN: Soft, nontender. Bowel sounds are heard. EXTREMITIES: 2+ peripheral pulses, 1+ edema BLE NEUROLOGIC EXAMINATION: Patient is awake, alert and oriented x3. IMPRESSION AND PLAN: Atrial flutter Systolic heart failure, EF 2025% Diastolic heart failure Shortness of breath Moderate aortic regurgitation Mild to moderate tricuspid regurgitation PLAN: She is feeling better today. Optimize heart failure regimen. Continue Toprol 25 mg by mouth daily, losartan 12.5 mg by mouth daily. Lasix 20 mg IV daily. She is still in a-flutter, rate better controlled, DC cardizem drip. We will plan for DANA/Cardioversion tomorrow 03/15. NPO after midnight. Stop lovenox and start Eliquis 5mg po BID, first dose tonight. We will follow. I am dictating on behalf of Dr. Chai Kolb's history/physical and assessment/plan. Objective - Vital Signs Vital signs: Vital Signs Temp 97.9 F 03/14/23 07:50 Pulse 87 03/14/23 07:50 Resp 18 03/14/23 07:50 BP 139/84 03/14/23 07:50 Pulse Ox 94 L 03/14/23 07:50 FiO2 Intake & Output 03/13/23 03/14/23 03/14/23 18:59 06:59 18:59 Intake Total 236 111 180 Output Total 1450 Balance -1214 111 180 Weight 109.769 kg 108.9 kg Intake: Intake, IV Titration 111 Amount Diltiazem 125 mg In 111 Sodium Chloride 0.9% 100 ml @ 5 MG/HR 5 mls/hr IV .Q24H [facility] Rx#:[id number] Oral 236 180 Output: Urine 1450 Other: Voiding Method Toilet Toilet # Voids 1 - Labs CBC & Chem 7: 03/13/23 05:04 03/13/23 05:04
--- NOTE | 2023-03-14 18:31 | P.PN ---
Progress Note - Text Progress Note Date: 03/14/23 Hospital course: This is a pleasant 47 years old female with no significant past medical history other than mitral valve prolapse. Patient presents because of dyspnea 1 week duration. She went to a clinic of Dr. Calvo last Wednesday and they diagnosed her with bronchitis and started on antibiotic with no relief She is coughing and making the total white phlegm but no chest pain only when coughing. Just with her diarrhea from the antibiotic no abdominal pain or vomiting. No dysuria urgency or other urinary complaints. No headache weakness or numbness or dizziness. No confusion She quit smoking 15 years ago, alcohol occasionally, marijuana occasionally no other drugs Patient is tachycardic at 112, she is mildly hypoxic 93-95%, afebrile. She has unremarkable labs including CBC, INR, BMP and liver enzymes. Glucose 113. Troponin negative is less than 0.012. ProBNP is elevated 1840. Viruses are not detected including influenza, RSV and coronavirus Chest x-ray cardiac silhouette. Large. Increased perihilar opacity. Findings are consistent with CHF versus pneumonia in the emergency room patient was started on aspirin 325 mg, Cardizem drip. Services antibiotic Rocephin and She was admitted with cardiology consult EKG showing atrial flutter with a rate of 110 and 2-1 block March 14: I assumed care of the patient today from [facility] hospitalist. Sitting up in bed. Breathing better. Slight clear sputum.. Eating fair. No bowel movement. Given Metamucil. On Cardizem drip 5 mg an hour. Lower extremity edema coming down. Active Medications Apixaban (Apixaban 5 Mg Tab) 5 mg PO BID [facility]; Protocol Aspirin (Aspirin 325 Mg Tab) 325 mg PO DAILY [facility] Last Admin: 03/14/23 07:52 Dose: 325 mg Furosemide (Furosemide 10 Mg/Ml 2 Ml Vial) 20 mg IV DAILY [facility] Last Admin: 03/14/23 07:52 Dose: 20 mg Losartan Potassium (Losartan 25 Mg Tab) 12.5 mg PO DAILY [facility] Last Admin: 03/14/23 07:52 Dose: 12.5 mg Metoprolol Succinate (Metoprolol Succinate (Er) 25 Mg Tab.Er.24h) 25 mg PO DAILY [facility] Last Admin: 03/14/23 07:52 Dose: 25 mg Nitroglycerin (Nitroglycerin Sl Tabs 0.4 Mg Tab) 0.4 mg SUBLINGUAL Q5M PRN PRN Reason: Chest Pain Past Medical History Past Medical History: Mitral Valve Prolapse (MVP) History of Any Multi-Drug Resistant Organisms: None Reported Past Surgical History: Breast Surgery Past Psychological History: Anxiety, Depression Smoking Status: Former smoker Past Alcohol Use History: Rare Past Drug Use History: Marijuana - Past Family History Mother Family Medical History: Cancer Father Family Medical History: Prostate Disorder On examination: VITAL SIGNS: [97.9, 87, 18, 139/84, 94% room air] GENERAL APPEARANCE: Sitting on bed, not in distress HEENT: Normal external appearance of nose and ear. Oral cavity normal EYES: Pupils equal. Conjunctiva normal. NECK: JVD not raised. Mass not palpable. RESPIRATORY: Respiratory effort normal. Lungs few basilar crackles. CARDIOVASCULAR: First and second sounds normal. No edema. ABDOMEN: Soft. Liver and spleen not palpable. No tenderness. No mass palpable. PSYCHIATRY: Alert and oriented x3. Mood and affect normal. INVESTIGATIONS, reviewed in the clinical context: LDL 59 TSH 1.64 procalcitonin 0.04 Troponin I 3 negative ProBNP 1840 2-D echocardiogram: EF 20-25% moderate aortic regurgitation. Right to moderate tricuspid regurgitation. Woxr-qu-hxooealc pulmonic regurgitation. Assessment and plan: -Acute on chronic congestive heart failure exacerbation from systolic dysfunction EF 20-25%. IV Lasix 20 mg daily. Add Aldactone 25 mg daily. Cozaar. -Moderate aortic regurgitation Follow-up with cardiology -Mild to moderate tricuspid and pulmonic regurgitation -Obesity BMI 35.5 Weight loss measures Discussed with patient. Add Aldactone. Activity as tolerated.
[2023-03-14] MEDS: APIXABAN 5 MG TAB PO SCH (20:36)
[2023-03-14] MEDS: SPIRONOLACTONE 25 MG TAB PO SCH (20:41)
[2023-03-15] MEDS: FUROSEMIDE 10 MG/ML 2 ML VIAL IV SCH (09:30)
[2023-03-15 12:00] LABS: African American GFR (CKD) >90 (>60 ml/min/1.73 sqM); Anion Gap 8 mmol/L; Blood Urea Nitrogen 15 mg/dL (7-17); Calcium 9.1 mg/dL (8.4-10.2); Carbon Dioxide 32 mmol/L (22-30); Chloride 99 mmol/L (98-107); Glucose 77 mg/dL (74-99); Non-African American GFR(CKD) >90 (>60 ml/min/1.73 sqM); Potassium 3.9 mmol/L (3.5-5.1); Sodium 139 mmol/L (137-145)
[2023-03-15] MEDS ORDERED: PROPOFOL 10 MG/ML 20 ML VIAL IV ONE (13:10)
[2023-03-15] MEDS ORDERED: LIDOCAINE 2% INJ 20 MG/ML (2 ML VIAL) ONE (13:10)
[2023-03-15] MEDS ORDERED: SODIUM CHLORIDE 0.9% 1,000 ML IV ONE ×2 (13:15)
[2023-03-15] MEDS ORDERED: BENZOCAINE SPRAY 1 CAN TOPICAL ONE (13:15)
[2023-03-15] MEDS ORDERED: ONDANSETRON 4 MG/2 ML VIAL IVP PRN (13:58)
[2023-03-15] MEDS: APIXABAN 5 MG TAB PO SCH ×2 (14:19→20:11)
[2023-03-15] MEDS: LOSARTAN 25 MG TAB PO SCH (14:19)
[2023-03-15] MEDS: SPIRONOLACTONE 25 MG TAB PO SCH (14:19)
[2023-03-15] MEDS: ASPIRIN 325 MG TAB PO SCH (14:20)
[2023-03-15] MEDS: METOPROLOL SUCCINATE (ER) 25 MG TAB.ER.24H PO SCH (14:20)
--- NOTE | 2023-03-15 14:40 | P.PN ---
Subjective Progress Note Date: 03/15/23 HISTORY OF PRESENT ILLNESS: Patient is a pleasant 47-year-old female with significant past medical history of mitral valve prolapse and ASD status post surgery at age 2 who presented with complaints of shortness of breath and cough. She does not follow with a environmental services attendant. She reports that over the past 1 week she has had worsening shortness of breath and cough, she did feel occasional palpitations. 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 In the emergency department she was found to be in a flutter with RVR. Troponin was negative 3. BNP elevated at 1840. WBC 4.9, hemoglobin 12.6, platelets 295, creatinine 0.6, TSH normal. EKG showed atrial flutter with RVR, 110 bpm. Echocardiogram was done showing ejection fraction 2025%, grade 3 diastolic dysfunction, moderate aortic regurgitation, mild to moderate tricuspid regurgitation. Chest x-ray shows enlarged cardiac silhouette with increased perihilar opacities. She is still feeling short of breath today. Denies any chest pain or pressure. She is unable to lay flat. 03/14 She is feeling much better today. Shortness of breath improved. Tele shows a-flutter with rates 60's. 03/15/2023 Patient examined this morning. She is sitting up in the chair. Patient denies chest pain or pressure. She denies shortness of breath. She remains in atrial flutter with controlled ventricular rates. PHYSICAL EXAM: VITAL SIGNS: Reviewed. GENERAL: Well-developed in no acute distress. NECK: Supple. No JVD or thyromegaly LUNGS: Respirations even and unlabored. Lungs essentially clear to auscultation bilaterally. HEART: Regular rate and rhythm. S1 and S2 heard. EXTREMITIES: Normal range of motion. No clubbing or cyanosis. Peripheral pulses intact. No lower extremity edema ASSESSMENT: New-onset typical atrial flutter Acute heart failure with reduced EF, 20-25% Cardiomyopathy, type unknown Shortness of breath Valvular heart disease including moderate aortic regurgitation and mild to moderate tricuspid regurgitation PLAN: Continue current cardiac medications Patient to undergo DANA/CV today with Dr. Kolb Further recommendations pending patient course Nurse practitioner note has been reviewed by physician. Signing provider agrees with the documented findings, assessment, and plan of care. Objective - Vital Signs Vital signs: Vital Signs Temp 98.4 F 03/15/23 14:24 Pulse 75 03/15/23 14:25 Resp 17 03/15/23 14:25 BP 138/78 03/15/23 14:24 Pulse Ox 98 03/15/23 14:24 FiO2 Intake & Output 03/14/23 03/15/23 03/15/23 18:59 06:59 18:59 Intake Total 540 400 Output Total 1250 Balance 540 -850 Weight 105.9 kg Intake: IV 400 Oral 540 Output: Urine 1250 Other: Voiding Method Toilet Toilet Toilet # Voids 2 1 4 - Labs CBC & Chem 7: 03/13/23 05:04 03/15/23 10:41 Labs: Abnormal Lab Results - Last 24 Hours (Table) 03/15/23 Range/Units 10:41 Carbon Dioxide 32 H (22-30) mmol/L
--- NOTE | 2023-03-15 17:09 | P.PN ---
Progress Note - Text Progress Note Date: 03/15/23 Hospital course: This is a pleasant 47 years old female with no significant past medical history other than mitral valve prolapse. Patient presents because of dyspnea 1 week duration. She went to a clinic of Dr. Calvo last Wednesday and they diagnosed her with bronchitis and started on antibiotic with no relief She is coughing and making the total white phlegm but no chest pain only when coughing. Just with her diarrhea from the antibiotic no abdominal pain or vomiting. No dysuria urgency or other urinary complaints. No headache weakness or numbness or dizziness. No confusion She quit smoking 15 years ago, alcohol occasionally, marijuana occasionally no other drugs Patient is tachycardic at 112, she is mildly hypoxic 93-95%, afebrile. She has unremarkable labs including CBC, INR, BMP and liver enzymes. Glucose 113. Troponin negative is less than 0.012. ProBNP is elevated 1840. Viruses are not detected including influenza, RSV and coronavirus Chest x-ray cardiac silhouette. Large. Increased perihilar opacity. Findings are consistent with CHF versus pneumonia in the emergency room patient was started on aspirin 325 mg, Cardizem drip. Services antibiotic Rocephin and She was admitted with cardiology consult EKG showing atrial flutter with a rate of 110 and 2-1 block March 14: I assumed care of the patient today from [facility] hospitalist. Sitting up in bed. Breathing better. Slight clear sputum.. Eating fair. No bowel movement. Given Metamucil. On Cardizem drip 5 mg an hour. Lower extremity edema coming down. March 15: Breathing congested improved. Slight cough. Minimal clear sputum. Patient was waiting to have a DC cardioversion done today including DANA. Remains in atrial flutter with controlled ventricular rate. Active Medications Apixaban (Apixaban 5 Mg Tab) 5 mg PO BID [facility]; Protocol Last Admin: 03/15/23 14:19 Dose: 5 mg Furosemide (Furosemide 10 Mg/Ml 2 Ml Vial) 20 mg IV DAILY [facility] Last Admin: 03/15/23 09:30 Dose: 20 mg Losartan Potassium (Losartan 25 Mg Tab) 12.5 mg PO DAILY [facility] Last Admin: 03/15/23 14:19 Dose: 12.5 mg Metoprolol Succinate (Metoprolol Succinate (Er) 25 Mg Tab.Er.24h) 25 mg PO DAILY [facility] Last Admin: 03/15/23 14:20 Dose: 25 mg Nitroglycerin (Nitroglycerin Sl Tabs 0.4 Mg Tab) 0.4 mg SUBLINGUAL Q5M PRN PRN Reason: Chest Pain Ondansetron HCl (Ondansetron 4 Mg/2 Ml Vial) 4 mg IVP Q6HR PRN PRN Reason: Nausea And Vomiting Spironolactone (Spironolactone 25 Mg Tab) 25 mg PO DAILY [facility] Last Admin: 03/15/23 14:19 Dose: 25 mg Past Medical History Past Medical History: Mitral Valve Prolapse (MVP) History of Any Multi-Drug Resistant Organisms: None Reported Past Surgical History: Breast Surgery Past Psychological History: Anxiety, Depression Smoking Status: Former smoker Past Alcohol Use History: Rare Past Drug Use History: Marijuana - Past Family History Mother Family Medical History: Cancer Father Family Medical History: Prostate Disorder On examination: VITAL SIGNS: [98.4, 75, 17, 138/78, 98% room air] GENERAL APPEARANCE: Sitting on bed, comfortable HEENT: Normal external appearance of nose and ear. Oral cavity normal EYES: Pupils equal. Conjunctiva normal. NECK: JVD prominent. Mass not palpable. RESPIRATORY: Respiratory effort normal. Lungs few basilar crackles. CARDIOVASCULAR: Heart sounds irregular. No edema. ABDOMEN: Soft. Liver and spleen not palpable. No tenderness. No mass palpable. PSYCHIATRY: Alert and oriented x3. Mood and affect normal. INVESTIGATIONS, reviewed in the clinical context: March 15: Potassium 3.9 creatinine 0.71 LDL 59 TSH 1.64 procalcitonin 0.04 Troponin I 3 negative ProBNP 1840 2-D echocardiogram: EF 20-25% moderate aortic regurgitation. Right to moderate tricuspid regurgitation. [id number] pulmonic regurgitation. Assessment and plan: -Acute on chronic congestive heart failure exacerbation from systolic dysfunction EF 20-25%.: Slow to respond IV Lasix 20 mg daily. Aldactone 25 mg daily. Cozaar. -Atrial flutter, controlled ventricular rate Toprol-XL, 25 mg a day. Eliquis. Pending DC cardioversion and DANA -Moderate aortic regurgitation Follow-up with cardiology -Mild to moderate tricuspid and pulmonic regurgitation -Obesity BMI 35.5 Weight loss measures IV Lasix. Aldactone. Toprol-XL. Pending DANA/cardioversion
--- NOTE | 2023-03-15 19:26 | P.TEE ---
Description of Procedure(s): Procedure performed: Transesophageal Echocardiogram with color flow doppler, pulsed wave doppler and continuous wave doppler, synchronized cardioversion Moderate conscious sedation: Moderate conscious sedation was supplied by anesthesia, see separate report. Complications: none Indications: Atrial flutter PROCEDURE: After the risks, benefits and alternatives of the above mentioned procedure was explained in detail with the patient, informed consent was obtained. Patient was brought to the lab in a fasting state. Patient was given IV Versed and Fentanyl for sedation. The throat was sprayed with Hurricane to anesthetize the throat. A lubricated Omni probe was then introduced into the esophagus and stomach and multiple views were obtained. 2D echo with color flow doppler, pulsed wave doppler and continuous wave doppler was utilized. Agitated saline bubbles were injected to assess for any intra-atrial shunt. The probe was then removed. There was no thrombus noted and therefore patient underwent synchronized cardioversion x 1 with 200J with resultant sinus rhythm. Patient tolerated the procedure well. Patient was transferred to the post procedure area in stable and satisfactory condition. FINDINGS: 1. The aortic valve is tricuspid and function normally. 2. The mitral valve appears be normal with mild mitral regurgitation. 3. Tricuspid valve appears to be normal. 4. The interatrial septum is intact. No evidence of PFO. 5. Left atrial appendage is free of clot. 6. Left ventricular EF is 20-25% with global hypokinesis.
[2023-03-16 08:21] VITALS: RESP 17
[2023-03-16] MEDS: FUROSEMIDE 10 MG/ML 2 ML VIAL IV SCH (08:35)
[2023-03-16] MEDS: METOPROLOL SUCCINATE (ER) 25 MG TAB.ER.24H PO SCH (08:36)
[2023-03-16] MEDS: APIXABAN 5 MG TAB PO SCH (08:36)
[2023-03-16] MEDS: SPIRONOLACTONE 25 MG TAB PO SCH (08:36)
[2023-03-16] MEDS: LOSARTAN 25 MG TAB PO SCH (08:36)
[2023-03-16] MEDS ORDERED: LOSARTAN 25 MG TAB PO STA (10:49)
[2023-03-16] MEDS ORDERED: METOPROLOL SUCCINATE (ER) 25 MG TAB.ER.24H PO STA (10:49)
--- NOTE | 2023-03-16 11:57 | P.PN ---
Subjective Progress Note Date: 03/16/23 HISTORY OF PRESENT ILLNESS: Patient is a pleasant 47-year-old female with significant past medical history of mitral valve prolapse and ASD status post surgery at age 2 who presented with complaints of shortness of breath and cough. She does not follow with a client specialist. She reports that over the past 1 week she has had worsening shortness of breath and cough, she did feel occasional palpitations. 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 In the emergency department she was found to be in a flutter with RVR. Troponin was negative 3. BNP elevated at 1840. WBC 4.9, hemoglobin 12.6, platelets 295, creatinine 0.6, TSH normal. EKG showed atrial flutter with RVR, 110 bpm. Echocardiogram was done showing ejection fraction 2025%, grade 3 diastolic dysfunction, moderate aortic regurgitation, mild to moderate tricuspid regurgitation. Chest x-ray shows enlarged cardiac silhouette with increased perihilar opacities. She is still feeling short of breath today. Denies any chest pain or pressure. She is unable to lay flat. 03/14 She is feeling much better today. Shortness of breath improved. Tele shows a-flutter with rates 60's. 03/15/2023 Patient examined this morning. She is sitting up in the chair. Patient denies chest pain or pressure. She denies shortness of breath. She remains in atrial flutter with controlled ventricular rates. 03/16/2023 Patient is status post DANA and cardioversion. She is maintaining sinus mechanism this morning. She denies any chest pain or pressure. Denies shortness of breath. Vital signs are stable. PHYSICAL EXAM: VITAL SIGNS: Reviewed. GENERAL: Well-developed in no acute distress. NECK: Supple. No JVD or thyromegaly LUNGS: Respirations even and unlabored. Lungs essentially clear to auscultation bilaterally. HEART: Regular rate and rhythm. S1 and S2 heard. EXTREMITIES: Normal range of motion. No clubbing or cyanosis. Peripheral pulses intact. No lower extremity edema ASSESSMENT: New-onset typical atrial flutter Acute heart failure with reduced EF, 20-25% Cardiomyopathy, type unknown Shortness of breath Valvular heart disease including moderate aortic regurgitation and mild to moderate tricuspid regurgitation PLAN: Increase metoprolol succinate 50 mg daily Increase losartan to 25 mg daily Discontinue IV Lasix. Begin oral Lasix Continue additional cardiac medications Patient is stable for discharge home today from a cardiac standpoint Nurse practitioner note has been reviewed by physician. Signing provider agrees with the documented findings, assessment, and plan of care. Objective - Vital Signs Vital signs: Vital Signs Temp 98.4 F 03/16/23 07:50 Pulse 84 03/16/23 08:00 Resp 17 03/16/23 08:00 BP 134/86 03/16/23 07:50 Pulse Ox 97 03/16/23 08:38 FiO2 Intake & Output 03/15/23 03/16/23 03/16/23 18:59 06:59 18:59 Intake Total 218 240 180 Output Total 1250 Balance -1032 240 180 Weight 101.5 kg Intake: IV 100 Oral 118 240 180 Output: Urine 1250 Other: Voiding Method Toilet Toilet Toilet # Voids 4 1 - Labs CBC & Chem 7: 03/13/23 05:04 03/15/23 10:41 Labs: Abnormal Lab Results - Last 24 Hours (Table) 03/15/23 Range/Units 10:41 Carbon Dioxide 32 H (22-30) mmol/L
[2023-03-16 16:09] VITALS: BP 139/88; PULSE 72; TEMP 98.7
--- NOTE | 2023-03-16 18:17 | CA ---
Transthoracic Echo Report Name: Nicole Elizondo Age: 47 Gender: F : 1975 Exam Date: 03/16/2023 14:45 Exam Location: [facility] [facility] Ht (in): 69 Wt (lb): 223 Ordering Physician: Zina Tao Attending/Referring Phys: [id number], Dinh General Assignment Reporter Faustina Neri RDCS Procedure CPT: Indications: reassess LV function Cardiac Hx: Technical Quality: Contrast 1: Total Dose (mL): Contrast 2: Total Dose (mL): MEASUREMENTS (Male / Female) Normal Values 2D ECHO LV Diastolic Diameter PLAX 5.9 cm 4.2 - 5.9 / 3.9 - 5.3 cm LV Systolic Diameter PLAX 4.4 cm IVS Diastolic Thickness 1.4 cm 0.6 - 1.0 / 0.6 - 0.9 cm LVPW Diastolic Thickness 1.2 cm 0.6 - 1.0 / 0.6 - 0.9 cm LV Relative Wall Thickness 0.4 FINDINGS Left Ventricle Moderately increased septal wall thickness. Mildly increased posterior wall thickness. Moderately increased left ventricular diastolic diameter. Reduced global left ventricular systolic function. Left ventricular ejection fraction is estimated at 20-25 %. Right Ventricle Right Atrium Left Atrium Mitral Valve Moderate mitral regurgitation. Aortic Valve Moderate aortic regurgitation. Tricuspid Valve Pulmonic Valve Pericardium No pericardial effusion. Aorta CONCLUSIONS Limited echo. Dilated left ventricle with severe global hypokinesis Moderate mitral and aortic regurgitation Previewed by: Dr. Steve Cisneros MD (Electronically Signed) Final Date: 16 Mar 2023 18:17
--- NOTE | 2023-03-16 20:31 | P.DS ---
Providers Date of admission: 03/13/23 07:27 Expected date of discharge: 03/16/23 Attending physician: Emmanuel Castellon Consults: 03/13/23 07:23 Consult Physician Routine Consulting Provider: Mikey Bryant Consult Reason/Comments: New-onset atrial fibrillation Do you want consulting provider notified?: Yes Primary care physician: [facility] Course: Hospital course: This is a pleasant 47 years old female with no significant past medical history other than mitral valve prolapse. Patient presents because of dyspnea 1 week duration. She went to a clinic of Dr. Calvo last Wednesday and they diagnosed her with bronchitis and started on antibiotic with no relief She is coughing and making the total white phlegm but no chest pain only when coughing. Just with her diarrhea from the antibiotic no abdominal pain or vomiting. No dysuria urgency or other urinary complaints. No headache weakness or numbness or dizziness. No confusion She quit smoking 15 years ago, alcohol occasionally, marijuana occasionally no other drugs Patient is tachycardic at 112, she is mildly hypoxic 93-95%, afebrile. She has unremarkable labs including CBC, INR, BMP and liver enzymes. Glucose 113. Troponin negative is less than 0.012. ProBNP is elevated 1840. Viruses are not detected including influenza, RSV and coronavirus Chest x-ray cardiac silhouette. Large. Increased perihilar opacity. Findings are consistent with CHF versus pneumonia in the emergency room patient was started on aspirin 325 mg, Cardizem drip. Services antibiotic Rocephin and She was admitted with cardiology consult EKG showing atrial flutter with a rate of 110 and 2-1 block March 14: I assumed care of the patient today from [facility] hospitalist. Sitting up in bed. Breathing better. Slight clear sputum.. Eating fair. No bowel movement. Given Metamucil. On Cardizem drip 5 mg an hour. Lower extremity edema coming down. March 15: Breathing congested improved. Slight cough. Minimal clear sputum. Patient was waiting to have a DC cardioversion done today including DANA. Remains in atrial flutter with controlled ventricular rate. March 2: Yesterday underwent DANA. No atrial shunt. No thrombus. Underwent successful cardioversion. Remains in sinus rhythm this morning. Breathing much better. Discussed with patient. No need for antibiotics. Follow-up with cartilage E outpatient. Past Medical History Past Medical History: Mitral Valve Prolapse (MVP) History of Any Multi-Drug Resistant Organisms: None Reported Past Surgical History: Breast Surgery Past Psychological History: Anxiety, Depression Smoking Status: Former smoker Past Alcohol Use History: Rare Past Drug Use History: Marijuana - Past Family History Mother Family Medical History: Cancer Father Family Medical History: Prostate Disorder On examination: VITAL SIGNS: [98.4, 65, 17, 126/84, 100% room air] GENERAL APPEARANCE: Sitting on bed, comfortable HEENT: Normal external appearance of nose and ear. Oral cavity normal EYES: Pupils equal. Conjunctiva normal. NECK: JVD prominent. Mass not palpable. RESPIRATORY: Respiratory effort normal. Lungs few basilar crackles. CARDIOVASCULAR: First seconds are normal. No edema. ABDOMEN: Soft. Liver and spleen not palpable. No tenderness. No mass palpable. PSYCHIATRY: Alert and oriented x3. Mood and affect normal. INVESTIGATIONS, reviewed in the clinical context: March 15: Potassium 3.9 creatinine 0.71 LDL 59 TSH 1.64 procalcitonin 0.04 Troponin I 3 negative ProBNP 1840 2-D echocardiogram: EF 20-25% moderate aortic regurgitation. Right to moderate tricuspid regurgitation. [id number] pulmonic regurgitation. Assessment and plan: -Acute on chronic congestive heart failure exacerbation from systolic dysfunction EF 20-25%.: Better I Lasix 20 mg daily. Aldactone 25 mg daily. Cozaar. -Atrial flutter, controlled ventricular rate Toprol-XL, 25 mg a day. Eliquis. Successful DC cardioversion following DAAN. -Moderate aortic regurgitation Follow-up with cardiology -Mild to moderate tricuspid and pulmonic regurgitation -Obesity BMI 35.5 Weight loss measures Disposition: Home Plan - Discharge Summary Discharge Rx Participant: Yes New Discharge Prescriptions: New Losartan [Cozaar] 25 mg PO HS #30 tab Apixaban [Eliquis] 5 mg PO BID #60 tab Furosemide [Lasix] 20 mg PO DAILY #30 tab Spironolactone [Aldactone] 25 mg PO DAILY #30 tab Metoprolol Succinate (ER) [Toprol XL] 50 mg PO DAILY #30 tab Discontinued Doxycycline Hyclate 100 mg PO BID Discharge Medication List Apixaban [Eliquis] 5 mg PO BID #60 tab 03/16/23 [Rx] Furosemide [Lasix] 20 mg PO DAILY #30 tab 03/16/23 [Rx] Losartan [Cozaar] 25 mg PO HS #30 tab 03/16/23 [Rx] Metoprolol Succinate (ER) [Toprol XL] 50 mg PO DAILY #30 tab 03/16/23 [Rx] Spironolactone [Aldactone] 25 mg PO DAILY #30 tab 03/16/23 [Rx] Follow up Appointment(s)/Referral(s): Chai Kolb DO [STAFF PHYSICIAN] - 1 Week (office will call you with appt time) Blake Villeda MD [Primary Care Provider] - 1 Week (office will call you with appt. time) None,Stated [REFERRING] - 1-2 days Patient Instructions/Handouts: Heart Failure (DC), A-fib (Atrial Fibrillation) (DC), Cardioversion (DC) Activity/Diet/Wound Care/Special Instructions: fluid restrict 2000 cc/day heart healthy diet activity limited until you see Dr. Kolb Discharge/Stand Alone Forms: Work/School Release Discharge Disposition: HOME SELF-CARE
[2023-03-17] MEDS ORDERED: FUROSEMIDE 20 MG TAB PO SCH (09:00)
[2023-03-17] MEDS ORDERED: LOSARTAN 25 MG TAB PO SCH (09:00)
[2023-03-17] MEDS ORDERED: METOPROLOL SUCCINATE (ER) 50 MG TAB.ER.24H PO SCH (09:00)
== END 2023-03-16 16:45 | disposition home or self-care (01) | DRG 308 ==
LOC: EC 04:43 → 3SCARD 07:27
PROVIDERS: ADMIT Hospitalist; ATTEND Hospitalist
PROC: 5A2204Z Restoration of Cardiac Rhythm, Single (ICD-10-PCS; 2023-03-15)
PROC: B24BZZ4 Ultrasonography of Heart with Aorta, Transesophageal (ICD-10-PCS; principal; 2023-03-15 10:40)
DX: I48.91 Unspecified atrial fibrillation (principal); I50.41 Acute combined systolic (congestive) and diastolic (congestive) heart failure; K52.1 Toxic gastroenteritis and colitis; Q21.10 Atrial septal defect, unspecified; I42.9 Cardiomyopathy, unspecified; I08.3 Combined rheumatic disorders of mitral, aortic and tricuspid valves; E66.9 Obesity, unspecified; I48.3 Typical atrial flutter; I45.10 Unspecified right bundle-branch block; R00.0 Tachycardia, unspecified; R09.02 Hypoxemia; T36.95XA Adverse effect of unspecified systemic antibiotic, initial encounter; Z20.822 Contact with and (suspected) exposure to COVID-19; Z68.35 Body mass index [BMI] 35.0-35.9, adult; Z87.891 Personal history of nicotine dependence; Z79.899 Other long term (current) drug therapy; Z79.01 Long term (current) use of anticoagulants; Z79.82 Long term (current) use of aspirin; Z28.311 Partially vaccinated for COVID-19
CPT/HCPCS: 36415; 71046; 80048; 80053; 80061; 83036; 83605; 83735; 83880; 84145; 84443; 84484; 85025; 85610; 85730; 87636; 92960; 93005; 93306; 93308; 93312; 93320; 93325; 94760; 96365; 96366; 96375; 99291

== ENCOUNTER → 2023-05-04 | Outpatient (CLI) | payer BC ==
[2023-05-05 05:23] LABS: Blood Urea Nitrogen 21.7 mg/dL (9.0-27.0); Carbon Dioxide 25.2 mmol/L (21.6-31.8); Chloride 100 mmol/L (96-109); Potassium 5.2 mmol/L (3.5-5.5); Sodium 136 mmol/L (135-145)
== END | disposition home or self-care (01) ==
LOC: LABWHC1 09:23
PROVIDERS: ATTEND Internal Medicine Clinical Cardiac Electrophysiology
DX: Z01.812 Encounter for preprocedural laboratory examination (principal); I48.3 Typical atrial flutter
CPT/HCPCS: 80051; 82565; 84520; 85027

== ENCOUNTER 2023-05-20 07:56 | Day surgery (SDC) | payer BC ==
[2023-05-20] MEDS ORDERED: SODIUM CHLORIDE 0.9% 1,000 ML IV ONE (08:02)
[2023-05-20] MEDS ORDERED: ONDANSETRON 4 MG/2 ML VIAL IVP STA (08:45)
[2023-05-20] MEDS ORDERED: KETAMINE 10 MG/ML 20 ML VIAL ONE (09:29)
[2023-05-20] MEDS ORDERED: PROPOFOL 10 MG/ML 20 ML VIAL IV ONE (09:29)
[2023-05-20] MEDS ORDERED: MIDAZOLAM 2 MG/2 ML VIAL ONE (09:29)
[2023-05-20] MEDS ORDERED: fentaNYL (PF) 50 MCG/ML 2 ML AMP ONE (09:29)
[2023-05-20] MEDS ORDERED: LIDOCAINE 1% INJ 10MG/ML (20 ML MDV) ONE (09:50)
[2023-05-20] MEDS ORDERED: LIDOCAINE 1% INJ 10MG/ML (20 ML MDV) SQ ONE (10:05)
[2023-05-20] MEDS ORDERED: HEPARIN SODIUM (1,000 UNIT/ML) 1,000 UNIT in SODIUM CHLORIDE 0.9% 1,000 ML IRRIGATION ONE (11:34)
--- NOTE | 2023-05-20 11:51 | P.HPCAR ---
History of Present Illness This is Dr. Abreu dictating an H/P on this patient The patient was interviewed and examined IMPRESSION / ASSESSMENT: Typical atrial flutter with RVR, symptomatic History of is the patch repair at the age of 2 years Cardiomyopathy with ejection fraction of 20-25% after an upper respiratory infection, global hypokinesis PLAN: Diagnostic study followed by Typical atrial flutter ablation Reassessment of LV function on intracardiac echo HPI In the month of February the patient presented with shortness of breath and bronchitis. She was found to be in typical atrial flutter with RVR 2-D echo revealed severe global cardio myopathy Since she is asymptomatic at that time she underwent an electrical cardioversion She presents for typical atrial flutter ablation She has a past history of ASD patch repair of the age of 2 years Her TSH was normal Inter-atrial conduction delay noted on EKG ROS: No fever chills or rigors, no cough, phlegm or expectoration, no nausea, vomiting or diarrhea, no hematuria, dysuria, no musculoskeletal complaints, no strokes or seizures, no skin lesions. EXAMINATION: On examination blood pressure 128/67 mmHg pulse rate in the 70s, afebrile Breath sounds are reduced bilaterally but there are no rhonchi Normal heart sounds no murmurs Abdomen soft No JVD REVIEW OF LABS, ECG & MEDICAL DATA Current medications include losartan, spironolactone, metoprolol succinate, Lasix and ELIQUIS Beta-hCG negative Physical Exam Vitals: Vital Signs Temp Pulse Resp BP Pulse Ox 05/20/23 08:20 97.7 F 71 16 128/67 100 Intake and Output 05/19/23 05/20/23 05/20/23 22:59 06:59 14:59 Intake Total 1363 Balance 1363 Intake: IV 1363 Other: Weight 105.6 kg Past Medical History Past Medical History: Heart Failure, Hypertension, Mitral Valve Prolapse (MVP) Additional Past Medical History / Comment(s): see Dr Abreu H&P, 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 sees DR Kolb, recently admitted 03/13/23 for heart issues per pt. History of Any Multi-Drug Resistant Organisms: None Reported Past Surgical History: Breast Surgery Additional Past Surgical History / Comment(s): surgery on ovaries, ACL repair, open heart surgery at 2 yrs old for valve, dermoid cyst Past Anesthesia/Blood Transfusion Reactions: Postoperative Nausea & Vomiting (PONV) Additional Past Anesthesia/Blood Transfusion Reaction / Comment(s): felt hot after breast surgery at [facility] , temporary Smoking Status: Former smoker - Past Family History Mother Family Medical History: Cancer Additional Family Medical History / Comment(s): breast cancer Father Family Medical History: Prostate Disorder Physical Examination Vital Signs Temp Pulse Resp BP Pulse Ox 05/20/23 08:20 97.7 F 71 16 128/67 100 Intake and Output 05/19/23 05/20/23 05/20/23 22:59 06:59 14:59 Intake Total 1363 Balance 1363 Intake: IV 1363 Other: Weight 105.6 kg Results Current Medications Generic Name Dose Route Start Last Admin Trade Name Freq PRN Reason Stop Dose Admin Sodium Chloride 1,000 mls @ 20 mls/hr 05/20/23 05:59 Saline 0.9% IV 06/19/23 06:00 .Q24H JAYCE Lactated Ringer's 1,000 mls @ 20 mls/hr 05/20/23 05:59 Lactated Ringers IV 06/19/23 06:00 .Q24H JAYCE Intake and Output 05/19/23 05/20/23 05/20/23 22:59 06:59 14:59 Intake Total 1363 Balance 1363 Intake: IV 1363 Other: Weight 105.6 kg Patient Weight 05/21/23 06:59 Weight 105.6 kg
[2023-05-20] MEDS ORDERED: ACETAMINOPHEN IV (For NPO) 1,000 MG in EMPTY BAG 1 BAG IVPB ONE (12:22)
[2023-05-20] MEDS ORDERED: ACETAMINOPHEN TAB 325 MG TAB PO PRN (12:22)
--- NOTE | 2023-05-20 12:46 | P.EPPROC ---
- EP Procedure Note Electrophysiology Procedure Note: Diagnosis Typical atrial flutter with RVR Associated cardio myopathy History of EST patch repair at 2 years of age Inter-atrial conduction delay Details Patient was brought to the EP lab in a fasting state. Written informed consent was obtained prior to the procedure. The procedure was performed under conscious sedation Per paper goods machine set up operator, patient may have a history of malignant hyperthermia following general anesthesia and therefore we avoid a general anesthesia Venous sheaths were placed in the right left femoral veins and diagnostic catheter placed in high right atrium His bundle area right ventricle coronary sinus and chemo tricuspid isthmus Patient was in sinus rhythm the start of the study During mapping of the chemo tricuspid isthmus she went into typical atrial flutter which terminated during ablation Intracardiac echo revealed normalization of LV function Thickened pericardium consistent with prior pericarditis 3-D anatomical mapping of the chemo tricuspid isthmus. Eustachian ridge and tricuspid valve were tagged. His bundle was tagged 3-D mapping of the acute tricuspid isthmus was performed. RF ablation was performed Good contact force, power used up to 40 W A complete RF line block was made without any anatomic gaps differential pacing across the RF line in the cavo tricuspid isthmus revealed bidirectional block A full EP study is performed Sinus cycle length 1125 ms, AL interval 193 ms, QRS 180 ms and QT 490 ms Tachycardia cycle length 280 ms for atrial flutter AH 25 and HV 37 ms Split P waves consistent with inter-atrial conduction delay Sinus node recovery times at 600, 500 and, 400 ms were 1541, 1548 and 997 ms Prolonged corrected sinus node recovery times as well as evidence of sinus node entrance block AV node Wenckebach block from the Maurizio sinus 430 ms No delta waves VA Wenckebach block, TRAN block 460 ms Atrial extra stimulation performed AV node ERP 600\390 ms Atrial ERP 600/190 ms High-dose Isuprel used AV node Wenckebach block improved to 290 ms Burst stimulation from the high right atrium and atrial extra stimulation performed No SVT induced Charmaine response to Parahisian pacing All sheaths removed at the end of the procedure No pericardial effusion Vascade closure device applied Patient tolerated the procedure well without any acute complications
[2023-05-20] MEDS: LACTATED RINGERS 1,000 ML IV SCH (15:35)
[2023-05-20] MEDS: SODIUM CHLORIDE 0.9% 1,000 ML IV SCH (15:35)
[2023-05-20] MEDS: APIXABAN 5 MG TAB PO SCH (20:55)
[2023-05-20] MEDS ORDERED: LOSARTAN 25 MG TAB PO SCH (21:00)
[2023-05-21 04:04] VITALS: BP 116/67; RESP 16
[2023-05-21] MEDS: LACTATED RINGERS 1,000 ML IV SCH (05:01)
[2023-05-21] MEDS: SODIUM CHLORIDE 0.9% 1,000 ML IV SCH (05:01)
[2023-05-21 06:02] LABS: Anisocytosis Slight; Basophils % (A) 0 %; Eosinophils # (A) 0.1 k/uL (0-0.7); Eosinophils % (A) 2 %; HCT 35.4 % (34.0-46.0); HGB 11.7 gm/dL (11.4-16.0); Lymphocytes # (A) 1.6 k/uL (1.0-4.8); Lymphocytes % (A) 35 %; MCH 28.5 pg (25.0-35.0); MCHC 33.1 g/dL (31.0-37.0); MCV 85.8 fL (80.0-100.0); Mean Platelet Volume 7.7; Monocytes # (A) 0.3 k/uL (0-1.0); Monocytes % (A) 7 %; Neutrophils # (A) 2.6 k/uL (1.3-7.7); Neutrophils % (A) 55 %; Platelet Count 208 k/uL (150-450); RBC 4.12 m/uL (3.80-5.40); RDW 16.9 % (11.5-15.5); WBC 4.7 k/uL (3.8-10.6)
[2023-05-21 08:26] VITALS: PULSE 56; TEMP 98.2
[2023-05-21] MEDS ORDERED: METOPROLOL SUCCINATE (ER) 50 MG TAB.ER.24H PO SCH (09:00)
[2023-05-21] MEDS ORDERED: FUROSEMIDE 20 MG TAB PO SCH (09:00)
[2023-05-21] MEDS ORDERED: SPIRONOLACTONE 25 MG TAB PO SCH (09:00)
[2023-05-21] MEDS: APIXABAN 5 MG TAB PO SCH (09:59)
--- NOTE | 2023-05-21 10:35 | P.DS ---
Providers Attending physician: Patrick Abreu Primary care physician: [facility] Course: Patient is doing well. Groins of healed well Rhythm is normal No chest discomfort no dizziness no lightheadedness On examination her blood pressure is normal Heart sounds are normal No murmurs no gallops no rub No swelling the groins Impression Typical atrial flutter Status post successful atrial flutter ablation AST patch repair at the age of 2 years History of viral cardio myopathy Plan Continue ELIQUIS Continue current cardiac medications including adenopathy artery medications Follow-up with Dr. Kolb Follow-up 2-D echo to reassess LV function Plan - Discharge Summary Discharge Rx Participant: No New Discharge Prescriptions: Continue Losartan [Cozaar] 25 mg PO HS #30 tab Apixaban [Eliquis] 5 mg PO BID #60 tab Furosemide [Lasix] 20 mg PO DAILY #30 tab Acetaminophen [Tylenol Arthritis] 1,300 mg PO BID Melatonin 20 mg PO HS Spironolactone [Aldactone] 25 mg PO DAILY #30 tab Metoprolol Succinate (ER) [Toprol XL] 50 mg PO DAILY #30 tab Multivit-Min/Iron Fum/Folic AC [One-A-Day Women's Complete Tab] 1 each PO DAILY Discharge Medication List Apixaban [Eliquis] 5 mg PO BID #60 tab 03/16/23 [Rx] Furosemide [Lasix] 20 mg PO DAILY #30 tab 03/16/23 [Rx] Losartan [Cozaar] 25 mg PO HS #30 tab 03/16/23 [Rx] Metoprolol Succinate (ER) [Toprol XL] 50 mg PO DAILY #30 tab 03/16/23 [Rx] Spironolactone [Aldactone] 25 mg PO DAILY #30 tab 03/16/23 [Rx] Acetaminophen [Tylenol Arthritis] 1,300 mg PO BID 05/13/23 [History] Melatonin 20 mg PO HS 05/13/23 [History] Multivit-Min/Iron Fum/Folic AC [One-A-Day Women's Complete Tab] 1 each PO DAILY 05/13/23 [History] Follow up Appointment(s)/Referral(s): Chai Kolb DO [STAFF PHYSICIAN] - 05/27/23 12:30 pm
== END 2023-05-21 11:45 | disposition home or self-care (01) ==
LOC: CATHEP 07:56 → 6NMEDSUR 11:34 → CATHEP 05-21 11:45
PROVIDERS: ATTEND Internal Medicine Clinical Cardiac Electrophysiology
DX: I48.3 Typical atrial flutter (principal); I42.9 Cardiomyopathy, unspecified; I11.0 Hypertensive heart disease with heart failure; I34.1 Nonrheumatic mitral (valve) prolapse; Z87.74 Personal history of (corrected) congenital malformations of heart and circulatory system; Z98.890 Other specified postprocedural states; Z87.81 Personal history of (healed) traumatic fracture; Z80.3 Family history of malignant neoplasm of breast; Z79.899 Other long term (current) drug therapy
CPT/HCPCS: 93623; 93662; 93653; 86900; 86901; 85025; 86850; 81025; C1759; C1894; C1769; C1760; C1730; C1893; C1732; J2250; J2405; J2001; J3010; J1644; J2704

== ENCOUNTER → 2023-10-11 | Outpatient (CLI) | payer BC ==
--- NOTE | 2023-10-12 12:22 | MM ---
Reason for Exam: Screening (asymptomatic). Last mammogram was performed 1 year(s) and 7 month(s) ago. Patient History: Menarche at age 11. First Full-Term at age 33. Late child-bearing (after 30). Postmenopausal. Patient has history of breast feeding. 2012, Bilateral Reduction. Mother had breast cancer, age 42. Risk Values: Kate 5 year model risk: 2.0%. NCI Lifetime model risk: 17.3%. Prior Study Comparison: 10/28/2015 Bilateral Screening Mammogram, [facility]. 02/23/2022 Bilateral Screening Mammogram, [facility]. 08/19/2022 Right MG 3D diag mammo w/cad RT, [facility]. Tissue Density: There are scattered fibroglandular densities. Findings: Analyzed By CAD. There is no suspicious group of microcalcifications or new suspicious mass in either breast. Overall Assessment: Negative, BI-RAD 1 Management: Screening Mammogram of both breasts in 1 year. . Patient should continue monthly self-breast exams. A clinical breast exam by your physician is recommended on an annual basis. This exam should not preclude additional follow-up of suspicious palpable abnormalities. Note on Kate scores and lifetime risk: 1. A Kate score greater than 3% is considered moderate risk. If this is the case, consider specialist referral to assess eligibility for a risk reducing agent. 2. If overall lifetime risk for the development of breast cancer is 20% or higher, the patient may qualify for future screening with alternating mammogram and breast MRI. Electronically signed and approved by: Homer Ramirez M.D. Radiologis
== END | disposition home or self-care (01) ==
LOC: RADMAMWWP 08:34
PROVIDERS: ATTEND Obstetrics & Gynecology
DX: Z12.31 Encounter for screening mammogram for malignant neoplasm of breast (principal); Z78.0 Asymptomatic menopausal state; Z80.3 Family history of malignant neoplasm of breast
CPT/HCPCS: 77063; 77067

== ENCOUNTER 2025-01-24 08:28 | Emergency (ER) | payer BC, OTHER ==
--- NOTE | 2025-01-24 08:57 | ED ---
General Adult HPI - General Chief complaint: Abdominal Pain Stated complaint: L side pain Time Seen by Provider: 01/24/25 08:40 Source: patient, RN notes reviewed, old records reviewed Mode of arrival: ambulatory Limitations: no limitations - History of Present Illness Initial comments: This is a 49-year-old female who presents to the emergency department complaining that she woke up this morning started having sudden left-sided flank pain that radiated to the middle of her abdomen and into her back. Patient denies any fever chills. Patient states the pain was severe and she started vomiting. Patient denies any diarrhea. Patient states she does have a history of kidney stones but they are normally on the right side. Patient denies chest pain or difficulty breathing. Patient denies any dysuria hematuria urinary frequency. - Related Data Home Medications Medication Instructions Recorded Confirmed Acetaminophen [Tylenol Arthritis] 1,300 mg PO BID 05/13/23 05/20/23 Melatonin 20 mg PO HS 05/13/23 05/20/23 Multivit-Min/Iron Fum/Folic AC 1 each PO DAILY 05/13/23 05/13/23 [One-A-Day Women's Complete Tab] Previous Rx's Medication Instructions Recorded Apixaban [Eliquis] 5 mg PO BID #60 tab 03/16/23 Furosemide [Lasix] 20 mg PO DAILY #30 tab 03/16/23 Losartan [Cozaar] 25 mg PO HS #30 tab 03/16/23 Metoprolol Succinate (ER) [Toprol 50 mg PO DAILY #30 tab 03/16/23 XL] Spironolactone [Aldactone] 25 mg PO DAILY #30 tab 03/16/23 Ketorolac [Toradol] 10 mg PO Q8HR #15 tab 01/24/25 Tamsulosin [Flomax] 0.4 mg PO DAILY #10 cap 01/24/25 Allergies Allergy/AdvReac Type Severity Reaction Status Date / Time morphine AdvReac very Verified 01/24/25 08:41 sensitive to it Review of Systems ROS Statement: Those systems with pertinent positive or pertinent negative responses have been documented in the HPI. ROS Other: All systems not noted in ROS Statement are negative. 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 sees DR Kolb, recently admitted 03/13/23 for heart issues per pt. History of Any Multi-Drug Resistant Organisms: None Reported Past Surgical History: Breast Surgery Additional Past Surgical History / Comment(s): surgery on ovaries, ACL repair, open heart surgery at 2 yrs old for valve, dermoid cyst Past Anesthesia/Blood Transfusion Reactions: Postoperative Nausea & Vomiting (PONV) Additional Past Anesthesia/Blood Transfusion Reaction / Comment(s): felt hot after breast surgery at [facility] , temporary Past Psychological History: Anxiety, Depression Smoking Status: Former smoker Past Alcohol Use History: Rare Past Drug Use History: Marijuana - Past Family History Mother Family Medical History: Cancer Additional Family Medical History / Comment(s): breast cancer Father Family Medical History: Prostate Disorder General Exam - General Exam Comments Initial Comments: GENERAL: Patient is well-developed and well-nourished. Patient is nontoxic and well- hydrated and is in mild distress. ENT: Neck is soft and supple. No significant lymphadenopathy is noted. Oropharynx is clear. Moist mucous membranes. Neck has full range of motion without eliciting any pain. EYES: The sclera were anicteric and conjunctiva were pink and moist. Extraocular movements were intact and pupils were equal round and reactive to light. Eyelids were unremarkable. PULMONARY: Unlabored respirations. Good breath sounds bilaterally. No audible rales rhonchi or wheezing was noted. CARDIOVASCULAR: There is a regular rate and rhythm without any murmurs gallops or rubs. ABDOMEN: Mild left mid abdominal pain no rebound SKIN: Skin is clear with no lesions or rashes and otherwise unremarkable. NEUROLOGIC: Patient is alert and oriented x3. Cranial nerves II through XII are grossly i ntact. Motor and sensory are also intact. Normal speech, volume and content. Symmetrical smile. MUSCULOSKELETAL: Normal extremities with adequate strength and full range of motion. LYMPHATICS: No significant lymphadenopathy is noted PSYCHIATRIC: Normal psychiatric evaluation. Limitations: no limitations Course Vital Signs 01/24/25 08:39 Pulse Rate 85 Respiratory 18 Rate Blood Pressure 126/74 O2 Sat by Pulse 99 Oximetry Medical Decision Making - Medical Decision Making EKG is interpreted by myself EKG shows atrial fibrillation at 77 bpm QRS is 95 QT interval is 378 QTc is 409. Patient's EKG shows no ST segment elevation or depression. Was pt. sent in by a medical professional or institution (TODD Montanez, MATERIALS HANDLING COORDINATOR, urgent care, hospital, or snf...) When possible be specific @ -No Did you speak to anyone other than the patient for history (EMS, parent, family, police, friend...)? What history was obtained from this source @ -No Did you review nursing and triage notes (agree or disagree)? Why? @ -I reviewed and agree with nursing and triage notes Were old charts reviewed (outside hosp., previous admission, EMS record, old EKG, old radiological studies, urgent care reports/EKG's, snf records)? Report findings @ -No old charts were reviewed Differential Diagnosis? @ -Differential Abdominal Pain Women: Appendicitis, Cholecystitis, diverticulosis, ischemic bowel, pancreatitis, hepatitis, UTI, gastroenteritis, AAA, incarcerated hernia, bowel obstruction, constipation, inflammatory bowel, hepatitis, peptic ulcer disease, splenic infarction, perforated viscus, vulvitis, ovarian torsion, PID, kidney stone, placenta abruption, this is not meant to be an all-inclusive list EKG interpreted by me (3pts min.). @ -As above X-rays interpreted by me (1pt min.). @ -None done CT interpreted by me (1pt min.). @ -CAT scan shows a 45 mm stone on the left side causing hydronephrosis U/S interpreted by me (1pt. min.). @ -None done What testing was considered but not performed or refused? (CT, X-rays, U/S, labs)? Why? @ -None What meds were considered but not given or refused? Why? @ -None Did you discuss the management of the patient with other professionals (professionals i.e. TODD Montanez, MATERIALS HANDLING COORDINATOR, lab, RT, psych nurse, social research assistant, certification officer, teacher, community liaison officer, rn case management)? Give summary @ -No Was smoking cessation discussed for >3mins.? @ -No Was critical care preformed (if so, how long)? @ -No Were there social determinants of health that impacted care today? How? (Homelessness, low income, unemployed, alcoholism, drug addiction, transportation, low edu. Level, literacy, decrease access to med. care, skilled nursing, rehab)? @ -No Was there de-escalation of care discussed even if they declined (Discuss DNR or withdrawal of care, Hospice)? DNR status @ -No What co-morbidities impacted this encounter? (DM, HTN, Smoking, COPD, CAD, Cancer, CVA, ARF, Chemo, Hep., AIDS, mental health diagnosis, sleep apnea, morbid obesity)? @ -None Was patient admitted / discharged? Hospital course, mention meds given and route, prescriptions, significant lab abnormalities, going to OR and other pertinent info. @ -Patient received Toradol and Zofran in the emergency department was fluid and feels considerably better. Undiagnosed new problem with uncertain prognosis? @ -No Drug Therapy requiring intensive monitoring for toxicity (Heparin, Nitro, Insulin, Cardizem)? @ -No Were any procedures done? @ -No Diagnosis/symptom? @ -Kidney stone Acute, or Chronic, or Acute on Chronic? @ -Acute Uncomplicated (without systemic symptoms) or Complicated (systemic symptoms)? @ -Complicated Side effects of treatment? @ -No Exacerbation, Progression, or Severe Exacerbation? @ -No Poses a threat to life or bodily function? How? (Chest pain, USA, LA, pneumonia, PE, COPD, DKA, ARF, appy, cholecystitis, CVA, Diverticulitis, Homicidal, Suici chance, threat to staff... and all critical care pts) @ -No - Lab Data Result diagrams: 01/24/25 08:58 01/24/25 08:58 Lab Results 01/24/25 01/24/25 01/24/25 Range/Units 08:58 08:58 08:58 WBC 9.3 (3.8-10.6) k/uL RBC 4.95 (3.80-5.40) m/uL Hgb 13.6 (11.4-16.0) gm/dL Hct 44.0 (34.0-46.0) % MCV 88.9 (80.0-100.0) fL MCH 27.6 (25.0-35.0) pg MCHC 31.0 (31.0-37.0) g/dL RDW 14.4 (11.5-15.5) % Plt Count 283 (150-450) k/uL MPV 7.7 Neutrophils % 81 % Lymphocytes % 13 % Monocytes % 3 % Eosinophils % 2 % Basophils % 0 % Neutrophils # 7.5 (1.3-7.7) k/uL Lymphocytes # 1.2 (1.0-4.8) k/uL Monocytes # 0.2 (0-1.0) k/uL Eosinophils # 0.2 (0-0.7) k/uL Basophils # 0.0 (0-0.2) k/uL Sodium 138 (137-145) mmol/L Potassium 4.2 (3.5-5.1) mmol/L Chloride 102 (98-107) mmol/L Carbon Dioxide 22 (22-30) mmol/L Anion Gap 14 mmol/L BUN 22 H (7-17) mg/dL Creatinine 0.70 (0.52-1.04) mg/dL Est GFR (CKD-EPI)AfAm >90 (>60 ml/min/1.73 sqM) Est GFR (CKD-EPI)NonAf >90 (>60 ml/min/1.73 sqM) Glucose 141 H (74-99) mg/dL Calcium 10.4 H (8.4-10.2) mg/dL Total Bilirubin 0.7 (0.2-1.3) mg/dL AST 23 (14-36) U/L ALT 23 (4-34) U/L Alkaline Phosphatase 95 (38-126) U/L Total Protein 8.2 (6.3-8.2) g/dL Albumin 5.2 H (3.5-5.0) g/dL Amylase 56 (30-110) U/L Lipase 105 (23-300) U/L Urine Color Dark Red Urine Appearance Bloody H (Clear) Urine RBC >182 H (0-5) /hpf Urine WBC 55 H (0-5) /hpf Ur Squamous Epith Cells 8 H (0-4) /hpf Urine Mucus Occasional H (None) /hpf Disposition Clinical Impression: Calculus of kidney Disposition: HOME SELF-CARE Condition: Good Instructions (If sedation given, give patient instructions): Kidney Stones (ED) Prescriptions: Tamsulosin [Flomax] 0.4 mg PO DAILY #10 cap Ketorolac [Toradol] 10 mg PO Q8HR #15 tab Is patient prescribed a controlled substance at d/c from ED?: No Referrals: [facility] [NON-STAFF] - 1-2 days (Contact a primary care office to become established with a provider. ) None,Stated [Primary Care Provider] - 1-2 days Forms: PH Area PCPs Time of Disposition: 10:41
[2025-01-24] MEDS: ONDANSETRON 4 MG/2 ML VIAL IVP STA (09:04)
[2025-01-24] MEDS: KETOROLAC 15 MG/ML 1 ML VIAL IVP STA (09:05)
[2025-01-24] MEDS: LACTATED RINGERS 1,000 ML IV ONE (09:05)
[2025-01-24 09:10] LABS: Basophils % (A) 0 %; Eosinophils # (A) 0.2 k/uL (0-0.7); Eosinophils % (A) 2 %; HGB 13.6 gm/dL (11.4-16.0); Lymphocytes # (A) 1.2 k/uL (1.0-4.8); Lymphocytes % (A) 13 %; MCH 27.6 pg (25.0-35.0); MCV 88.9 fL (80.0-100.0); Mean Platelet Volume 7.7; Monocytes # (A) 0.2 k/uL (0-1.0); Monocytes % (A) 3 %; Neutrophils # (A) 7.5 k/uL (1.3-7.7); Neutrophils % (A) 81 %; Platelet Count 283 k/uL (150-450); RBC 4.95 m/uL (3.80-5.40); RDW 14.4 % (11.5-15.5); WBC 9.3 k/uL (3.8-10.6)
[2025-01-24 09:16] LABS: Mucus,Urine Occasional /hpf; RBC,Urine >182 /hpf (0-5); Squamous Epithelial Cell,Urine 8 /hpf (0-4); WBC,Urine 55 /hpf (0-5)
[2025-01-24 09:18] LABS: ALT 23 U/L (4-34); AST 23 U/L (14-36); African American GFR (CKD) >90 (>60 ml/min/1.73 sqM); Albumin 5.2 g/dL (3.5-5.0); Alkaline Phosphatase 95 U/L (38-126); Amylase 56 U/L (30-110); Anion Gap 14 mmol/L; Blood Urea Nitrogen 22 mg/dL (7-17); Calcium 10.4 mg/dL (8.4-10.2); Carbon Dioxide 22 mmol/L (22-30); Chloride 102 mmol/L (98-107); Glucose 141 mg/dL (74-99); Lipase 105 U/L (23-300); Non-African American GFR(CKD) >90 (>60 ml/min/1.73 sqM); Sodium 138 mmol/L (137-145); Total Bilirubin 0.7 mg/dL (0.2-1.3); Total Protein 8.2 g/dL (6.3-8.2)
[2025-01-24 09:25] LABS: Appearance,Urine Bloody (Clear); Color,Urine Dark Red; Potassium 4.2 mmol/L (3.5-5.1)
--- NOTE | 2025-01-24 09:54 | CT ---
EXAMINATION TYPE: CT abdomen pelvis wo con DATE OF EXAM: 01/24/2025 COMPARISON: NONE CLINICAL INDICATION: Female, 49 years old with history of abdominal pain, left flank pain, TECHNIQUE: CT scan of the abdomen and pelvis is performed without contrast Oral contrast used: (none if empty) CT DLP: 1130 mGycm, Automated exposure control for dose reduction was used. FINDINGS: Within the limitation of a noncontrast study, the following observations are made. LUNG BASES: Cardiomegaly is present. There is at least moderate left atrial dilatation. LIVER/GB: No significant abnormality is appreciated. PANCREAS: No significant abnormality is seen. SPLEEN: No significant abnormality is seen. ADRENALS: No significant abnormality is seen. KIDNEYS: No right-sided renal calculi or hydronephrosis. There are 2 adjacent small lower pole left r enal calculi. There is mild to moderate left-sided hydronephrosis because of 4 to 5 mm obstructing ca lculus at left UPJ coronal image 70. BOWEL: Small size hiatal hernia. Normal-appearing appendix from the cecum. No abnormal small or large bowel dilatation. UTERUS/ADNEXA: Anteverted uterus. There are 2 tubal ligation clips in the right pelvis thought presen t. Correlate clinically otherwise other etiologies need to be considered. There is 3.0 cm simple righ t ovarian cyst or cystic lesion image 73. LYMPH NODES: No greater than 1cm abdominal or pelvic lymph nodes are appreciated. OSSEOUS STRUCTURES: Slight grade 1 anterolisthesis L4 on L5. Moderate disc space narrowing at this le lili. Slight scoliotic curvature in the thoracolumbar spine. OTHER: There is moderate-sized ventral wall hernia in the midline of the abdomen just above the umbil icus. There is moderate-sized fat-containing umbilical hernia with some free fluid. IMPRESSION: There is 4 to 5 mm calculus at left UPJ causing [id number] left-sided hydronephrosi s. [facility], , 01/24/2025 9:52 AM
[2025-01-24] MEDS: HYDROmorphone 0.5 MG/0.5 ML SYRINGE IVP STA (10:48)
[2025-01-24 11:03] VITALS: BP 120/73; PULSE 83; RESP 16; TEMP 98
== END 2025-01-24 11:04 | disposition home or self-care (01) ==
LOC: EC 08:28
DX: N20.0 Calculus of kidney (principal); Z87.891 Personal history of nicotine dependence
CPT/HCPCS: 36415; 93005; 80053; 82150; 83690; 85025; 81001; 74176; 99284; 96374; 96375; 96361; J2405; J1885; J1171

== ENCOUNTER 2025-02-12 08:45 | Day surgery (SDC) | payer BC, OTHER ==
[~2025-02-12 08:45] MED LIST: LACTATED RINGERS 1,000 ML IV SCH; SODIUM CHLORIDE 0.9% 1,000 ML IV SCH
[2025-02-12] MEDS ORDERED: SODIUM CHLORIDE 0.9% 500 ML IV SCH (09:00)
[2025-02-12 09:10] VITALS: TEMP 97.7
[2025-02-12] MEDS: IV FLUID CONTINUATION 500 ML IV ONE ×2 (09:19)
[2025-02-12] MEDS: ONDANSETRON 4 MG/2 ML VIAL IVP STA (09:22)
[2025-02-12] MEDS: DEXAMETHASONE SOD PHOSPHATE 4 MG/ML 1 ML VIAL IVP STA (09:22)
[2025-02-12] MEDS ORDERED: LIDOCAINE 2% (PF) 20 MG/ML 5 ML VIAL ONE (10:00)
[2025-02-12] MEDS ORDERED: PROPOFOL 10 MG/ML 20 ML VIAL IV ONE (10:00)
[2025-02-12] MEDS: BENZOCAINE SPRAY 1 EACH MUCOUS MEM STA (10:02)
--- NOTE | 2025-02-12 10:23 | P.TEE ---
Description of Procedure(s): Procedure performed: Transesophageal Echocardiogram with color flow doppler, pulsed wave doppler and continuous wave doppler, synchronized cardioversion Moderate conscious sedation: Moderate conscious sedation was supplied by anesthesia, see separate report. Complications: none Indications: Atrial flutter PROCEDURE: After the risks, benefits and alternatives of the above mentioned procedure was explained in detail with the patient, informed consent was obtained. Patient was brought to the lab in a fasting state. Patient was given sedation by anesthesia, see separate report. The throat was sprayed with Hurricane to anesthetize the throat. A lubricated Omni probe was then introduced into the esophagus and stomach and multiple views were obtained. 2D echo with color flow doppler, pulsed wave doppler and continuous wave doppler was utilized. Agitated saline bubbles were injected to assess for any intra- atrial shunt. The probe was then removed. There was no thrombus noted and therefore patient underwent synchronized cardioversion x 1 with 200J with resultant sinus rhythm. Patient tolerated the procedure well. Patient was transferred to the post procedure area in stable and satisfactory condition. FINDINGS: 1. The aortic valve is tricuspid with normal function with mild aortic reg urgitation. 2. The mitral valve appears be normal with mild mitral regurgitation. 3. Tricuspid valve appears to be normal with mild to moderate tricuspid regurgitation. 4. The interatrial septum is intact. No evidence of PFO. 5. Left atrial appendage is free of clot. 6. Left ventricular ejection fraction 35 to 40% with global hypokinesis
[2025-02-12 11:31] VITALS: PULSE 64
[2025-02-12 11:49] VITALS: BP 131/83; RESP 20
== END 2025-02-12 12:01 | disposition home or self-care (01) ==
LOC: OR 08:45
PROVIDERS: ATTEND Internal Medicine
DX: I48.3 Typical atrial flutter (principal); I48.0 Paroxysmal atrial fibrillation; I08.3 Combined rheumatic disorders of mitral, aortic and tricuspid valves; I11.0 Hypertensive heart disease with heart failure; I50.22 Chronic systolic (congestive) heart failure; I42.9 Cardiomyopathy, unspecified; E78.5 Hyperlipidemia, unspecified; K21.9 Gastro-esophageal reflux disease without esophagitis; F41.9 Anxiety disorder, unspecified; F32.A Depression, unspecified; Z91.89 Other specified personal risk factors, not elsewhere classified; Z79.01 Long term (current) use of anticoagulants; Z79.899 Other long term (current) drug therapy; Z88.5 Allergy status to narcotic agent; Z87.74 Personal history of (corrected) congenital malformations of heart and circulatory system; Z82.49 Family history of ischemic heart disease and other diseases of the circulatory system
CPT/HCPCS: 93312; 93320; 93325; 81025; 92960; J1100; J2405; J2704; J2003